=== PATIENT | female | born 1960 | race Caucasian/White ===

== ENCOUNTER 2017-09-20 09:45 | Inpatient (IN) | payer MEDICAID ==
[~2017-09-20] VITALS: Ht 162.6 cm; Wt 73.3 kg
[2017-09-20 10:45] LABS: APPEARANCE,URINE Turbid (CLEAR); BILIRUBIN,URINE Negative (NEGATIVE); COLOR,URINE Yellow (YELLOW); GLUCOSE, URINE (UA) Negative (NEGATIVE); KETONES,URINE 15 mg/dL (NEGATIVE); LEUKOCYTE ESTERASE ,URINE Small (NEGATIVE); NITRATE,URINE Negative (NEGATIVE); OCCULT BLOOD,URINE Negative (NEGATIVE); PROTEIN,URINE Negative (NEGATIVE); UROBILINOGEN,URINE 0.2 mg/dL (0.2-1.0)
[2017-09-20 10:51] LABS: RED CELL DISTRIBUTION WIDTH 12.7 % (11.0-15.5)
[2017-09-20 10:52] LABS: AMPHET/METH SCREEN,URINE NEGATIVE (NEGATIVE); BARBITURATE SCREEN, URINE NEGATIVE (NEGATIVE); BENZODIAZEPINES SCREEN,URINE NEGATIVE (NEGATIVE); CANNABINOID SCREEN,URINE NEGATIVE (NEGATIVE); COCAINE SCREEN,URINE NEGATIVE (NEGATIVE); OPIATE SCREEN,URINE NEGATIVE (NEGATIVE); PHENCYCLIDINE SCREEN,URINE NEGATIVE (NEGATIVE)
[2017-09-20 10:55] LABS: ACETAMINOPHEN < 1 mcg/mL (10-30); CARBON DIOXIDE 24 mmol/L (21-32); CREATININE 0.5 mg/dL (0.5-1.5); GLOMERULAR FILTR. RATE CALC 136 mL/min (>60); GLUCOSE,RANDOM 109 mg/dL (70-105); POTASSIUM 3.7 mmol/L (3.5-5.1); SALICYLATE < 2.8 mg/dL (2.8-20.0); SODIUM SERUM 113 mmol/L (136-145); UREA NITROGEN, BLOOD 9 mg/dL (7-18)
[2017-09-20 10:56] LABS: CHLORIDE 79 mmol/L (101-111)
[2017-09-20 11:11] LABS: BASOPHILS % (AUTO) 0.6 % (0.0-5.0); EOSINOPHILS % (AUTO) 1.5 % (0.0-8.0); LYMPHOCYTES % (AUTO) 24.4 % (21.0-51.0); MEAN CORPUSCULAR HGB CONC 36.9 g/dL (32.0-36.0); MEAN CORPUSCULAR VOLUME 86.6 fL (79-99); NEUTROPHILS % (AUTO) 63.5 % (40.0-77.0); PLATELET COUNT (AUTO) 292 K/uL (130-400); RED BLOOD CELL COUNT(AUTO) 3.69 MIL/uL (4.00-5.50); WHITE BLOOD COUNT (AUTO) 7.7 K/uL (4.8-10.8)
[2017-09-20 11:20] LABS: BACTERIA,URINE Few /HPF (None Seen); MUCUS,URINE Few LPF (None Seen); RBC,URINE None Seen /HPF (0-1); SQUAMOUS EPITHELIAL CELL,UR Moderate /LPF (0-2)
[2017-09-20 12:04] LABS: CHLORIDE,URINE RANDOM 40 mmol/L (110-250); POTASSIUM,URINE RANDOM 17 mmol/L (25-125); SODIUM,URINE RANDOM 28 mmol/l (40-220)
[2017-09-20] MEDS ORDERED: SODIUM CHLORIDE 0.9% 1000ML 1,000 ML IV ONE (12:05)
[2017-09-20] MEDS ORDERED: HALOPERIDOL LACTATE 5 MG/ML VIAL ONE (15:13)
[2017-09-20] MEDS: SODIUM CHLORIDE 0.9% 1000ML 1,000 ML IV SCH ×2 (15:15→23:40)
[2017-09-20] MEDS ORDERED: ONDANSETRON HCL 4 MG/2 ML VIAL IVP PRN (15:15)
[2017-09-20 16:20] VITALS: BP 92/52
[2017-09-20] MEDS ORDERED: TRI115C TP (18:08)
[2017-09-20] MEDS ORDERED: PRAV80TA21 PO (18:08)
[2017-09-20] MEDS ORDERED: AEC81 PO (18:08)
[2017-09-20] MEDS ORDERED: MONT10TA24 PO (18:08)
[2017-09-20] MEDS ORDERED: ELET40TA10 PO (18:08)
[2017-09-20] MEDS ORDERED: DIPH25TA22 PO (18:08)
[2017-09-20] MEDS ORDERED: NITR0.4T SL (18:08)
[2017-09-20] MEDS ORDERED: METH-350 PO (18:08)
[2017-09-20] MEDS ORDERED: ESOM40CA PO (18:08)
[2017-09-20] MEDS ORDERED: CYAN500T46 PO (18:08)
[2017-09-20] MEDS ORDERED: PRAM0.5T3 PO (18:08)
[2017-09-20] MEDS ORDERED: ACYC200C PO (18:08)
[2017-09-20] MEDS ORDERED: ZOLP5TAB8 PO (18:08)
[2017-09-20] MEDS ORDERED: OXCA300T46 PO (18:08)
[2017-09-20] MEDS ORDERED: CHOL200013 PO (18:08)
[2017-09-20] MEDS ORDERED: BENZ2TAB10 PO (18:08)
[2017-09-20] MEDS ORDERED: OLAN15TA2 PO (18:08)
[2017-09-20] MEDS ORDERED: CALC400I NASAL (18:08)
[2017-09-20] MEDS ORDERED: MECL-111 PO (18:08)
[2017-09-20] MEDS ORDERED: IPRA3AMP4 IH (18:08)
[2017-09-20] MEDS ORDERED: PROP20TA7 PO (18:08)
[2017-09-20] MEDS ORDERED: TRAM50TA4 PO (18:08)
[2017-09-20] MEDS ORDERED: ALBU0.63 IH (18:08)
[2017-09-20] MEDS ORDERED: BENZ-51 PO (18:10)
[2017-09-20 19:20] LABS: CREATININE 0.6 mg/dL (0.5-1.5); POTASSIUM 3.4 mmol/L (3.5-5.1)
[2017-09-20 20:21] VITALS: BP 100/50
[2017-09-20 23:10] VITALS: BP 121/74
[2017-09-20 23:30] VITALS: BP 102/62
[2017-09-20] MEDS: ACETAMINOPHEN 325 MG TAB PO PRN (23:34)
[2017-09-20] MEDS: HALOPERIDOL LACTATE 5 MG/ML VIAL IM PRN (23:50)
[2017-09-21 04:10] VITALS: BP 108/55
[2017-09-21 06:14] LABS: HEMATOCRIT 33.4 % (36-48); MEAN CORPUSCULAR VOLUME 88.8 fL (79-99); PLATELET COUNT (AUTO) 307 K/uL (130-400); RED BLOOD CELL COUNT(AUTO) 3.76 MIL/uL (4.00-5.50); RED CELL DISTRIBUTION WIDTH 12.9 % (11.0-15.5); WHITE BLOOD COUNT (AUTO) 4.1 K/uL (4.8-10.8)
[2017-09-21 06:22] LABS: CREATININE 0.5 mg/dL (0.5-1.5); POTASSIUM 3.4 mmol/L (3.5-5.1)
[2017-09-21 07:34] LABS: EOSINOPHILS % (MANUAL) 2 % (1-6); LYMPHOCYTES % (MANUAL) 36 % (22-44); MONOCYTES % (MANUAL) 9 % (2-9); SEGMENTED NEUTROPHILS % 53 % (40-70)
[2017-09-21 07:35] LABS: PLATELET MORPHOLOGY COMMENT ADEQUATE
[2017-09-21 07:36] LABS: MAN.DIFF COMMENT-IMPRESSION MANUAL DIFFERENTIAL
[2017-09-21 08:12] VITALS: BP 101/75
[2017-09-21] MEDS ORDERED: MECLIZINE HCL 25 MG TABLET PO SCH (08:30)
[2017-09-21] MEDS ORDERED: BENZONATATE 100 MG CAPSULE PO PRN (08:30)
[2017-09-21] MEDS ORDERED: MONTELUKAST SODIUM 10 MG TAB PO PRN (08:30)
[2017-09-21] MEDS ORDERED: OLANZAPINE 15 MG PO SCH (08:30)
[2017-09-21] MEDS ORDERED: OXCA300O4 PO (08:34)
[2017-09-21] MEDS ORDERED: ACET-66 PO (08:34)
[2017-09-21] MEDS ORDERED: TEMA7.5C19 PO (08:34)
[2017-09-21] MEDS ORDERED: IBUP-2070 PO (08:34)
[2017-09-21] MEDS ORDERED: TRAZ-147 PO (08:34)
[2017-09-21] MEDS ORDERED: PROP10TA10 PO (08:34)
[2017-09-21] MEDS ORDERED: ACETAMINOPHEN EXTRA STRENGTH 500 MG TABLET PO SCH (08:45)
[2017-09-21] MEDS ORDERED: OXCARBAZEPINE 300 MG TAB PO SCH (08:45)
[2017-09-21] MEDS: PANTOPRAZOLE SODIUM 40 MG TABLET.DR PO SCH (08:52)
[2017-09-21] MEDS ORDERED: PANTOPRAZOLE SODIUM 40 MG TABLET.DR PO SCH (09:00)
[2017-09-21] MEDS: ASPIRIN 81 MG EC TAB PO SCH (09:04)
[2017-09-21] MEDS: CYANOCOBALAMIN (VITAMIN B-12) 1,000 MCG TABLET PO SCH (09:04)
[2017-09-21] MEDS: PROPRANOLOL HCL 10 MG TAB PO SCH ×2 (09:04→20:05)
[2017-09-21] MEDS: BENZTROPINE MESYLATE 0.5 MG TAB PO SCH ×2 (09:24→20:05)
[2017-09-21] MEDS ORDERED: HYDROCORTISONE/PRAMOXINE 10 GM FOAM RC PRN (11:30)
[2017-09-21] MEDS ORDERED: POTASSIUM CHLORIDE 10 MEQ/TAB.SA PO SCH (11:30)
[2017-09-21 11:54] VITALS: BP 105/76
[2017-09-21] MEDS: ACETAMINOPHEN 325 MG TAB PO PRN (13:36)
[2017-09-21 16:00] VITALS: BP 127/80
[2017-09-21 19:00] VITALS: BP 111/78
[2017-09-21] MEDS: ATORVASTATIN CALCIUM 20 MG TABLET PO SCH (20:05)
[2017-09-21] MEDS: TEMAZEPAM 7.5 MG CAPSULE PO SCH (20:05)
[2017-09-21] MEDS: TRAZODONE HCL 100 MG TABLET PO SCH (20:05)
[2017-09-21 23:00] VITALS: BP 106/62
[2017-09-22] VITALS (7 sets, daily range): BP systolic 98–130; BP diastolic 50–83
[2017-09-22] MEDS: ACETAMINOPHEN 325 MG TAB PO PRN ×2 (03:50→12:51)
[2017-09-22] MEDS: SODIUM CHLORIDE 0.9% 1000ML 1,000 ML IV SCH (03:53)
[2017-09-22 07:06] LABS: CREATININE 0.5 mg/dL (0.5-1.5); POTASSIUM 3.7 mmol/L (3.5-5.1)
[2017-09-22] MEDS: ASPIRIN 81 MG EC TAB PO SCH (09:40)
[2017-09-22] MEDS: CYANOCOBALAMIN (VITAMIN B-12) 1,000 MCG TABLET PO SCH (09:40)
[2017-09-22] MEDS: PROPRANOLOL HCL 10 MG TAB PO SCH ×2 (09:40→22:45)
[2017-09-22] MEDS: BENZTROPINE MESYLATE 0.5 MG TAB PO SCH ×2 (09:40→22:51)
[2017-09-22] MEDS: PANTOPRAZOLE SODIUM 40 MG TABLET.DR PO SCH (09:41)
[2017-09-22] MEDS ORDERED: OLANZAPINE 5 MG TAB ONE (17:23)
[2017-09-22] MEDS: OXCARBAZEPINE 300 MG TAB PO SCH ×2 (17:26→22:53)
[2017-09-22] MEDS: HALOPERIDOL LACTATE 5 MG/ML VIAL IM PRN (17:39)
[2017-09-22] MEDS ORDERED: OLANZAPINE 5 MG TAB PO SCH (18:00)
[2017-09-22] MEDS: ATORVASTATIN CALCIUM 20 MG TABLET PO SCH ×2 (21:00→22:49)
[2017-09-22] MEDS: OLANZAPINE 5 MG TAB PO SCH (21:00)
[2017-09-22] MEDS: TEMAZEPAM 7.5 MG CAPSULE PO SCH (21:00)
[2017-09-22] MEDS ORDERED: MECLIZINE HCL 25 MG TABLET PO PRN (21:00)
[2017-09-22] MEDS: TRAZODONE HCL 100 MG TABLET PO SCH (21:00)
[2017-09-23] MEDS: HALOPERIDOL LACTATE 5 MG/ML VIAL IM PRN (03:51)
[2017-09-23] MEDS: ACETAMINOPHEN 325 MG TAB PO PRN ×2 (03:52→09:35)
[2017-09-23 04:00] VITALS: BP 129/81
[2017-09-23 06:18] LABS: HEMATOCRIT 30.6 % (36-48); MEAN CORPUSCULAR HEMOGLOBIN 31.3 pg (27.0-33.0); MEAN CORPUSCULAR HGB CONC 34.9 g/dL (32.0-36.0); MEAN CORPUSCULAR VOLUME 89.6 fL (79-99); PLATELET COUNT (AUTO) 302 K/uL (130-400); RED BLOOD CELL COUNT(AUTO) 3.42 MIL/uL (4.00-5.50); RED CELL DISTRIBUTION WIDTH 13.2 % (11.0-15.5); WHITE BLOOD COUNT (AUTO) 7.4 K/uL (4.8-10.8)
[2017-09-23 07:00] VITALS: BP 134/83
[2017-09-23 08:03] LABS: ALBUMIN 4.1 g/dL (3.5-5.0); BILIRUBIN,TOTAL 0.4 mg/dL (0.2-1.0); CREATININE 0.4 mg/dL (0.5-1.5); POTASSIUM 3.8 mmol/L (3.5-5.1)
[2017-09-23] MEDS: CYANOCOBALAMIN (VITAMIN B-12) 1,000 MCG TABLET PO SCH (09:35)
[2017-09-23] MEDS: PANTOPRAZOLE SODIUM 40 MG TABLET.DR PO SCH (09:36)
[2017-09-23] MEDS: OXCARBAZEPINE 300 MG TAB PO SCH ×4 (09:36→21:01)
[2017-09-23] MEDS: ASPIRIN 81 MG EC TAB PO SCH (09:36)
[2017-09-23] MEDS: BENZTROPINE MESYLATE 0.5 MG TAB PO SCH ×2 (09:36→20:53)
[2017-09-23] MEDS: PROPRANOLOL HCL 10 MG TAB PO SCH ×2 (09:36→21:00)
[2017-09-23 10:37] VITALS: BP 99/72
[2017-09-23] MEDS: SODIUM CHLORIDE 0.9% 1000ML 1,000 ML IV SCH ×3 (12:15→23:26)
[2017-09-23] MEDS ORDERED: OLANZAPINE ODT 5 MG TAB SL SCH (13:15)
[2017-09-23] MEDS ORDERED: OLANZAPINE ODT 5 MG TAB SL PRN (13:15)
[2017-09-23 15:14] VITALS: BP 129/82
[2017-09-23] MEDS: ATORVASTATIN CALCIUM 20 MG TABLET PO SCH (21:00)
[2017-09-23] MEDS ORDERED: OLANZAPINE 10MG/ML 1ML VIAL IM PRN (21:00)
[2017-09-23] MEDS: OLANZAPINE 5 MG TAB PO SCH (21:00)
[2017-09-23] MEDS: TEMAZEPAM 7.5 MG CAPSULE PO SCH (21:00)
[2017-09-23] MEDS: TRAZODONE HCL 100 MG TABLET PO SCH (21:00)
[2017-09-23 22:40] VITALS: BP 126/82
[2017-09-24] MEDS: LORAZEPAM 2 MG/ML 1 ML VIAL IVP PRN (02:41)
[2017-09-24 04:52] LABS: CREATININE 0.4 mg/dL (0.5-1.5); POTASSIUM 3.1 mmol/L (3.5-5.1)
[2017-09-24] MEDS: SODIUM CHLORIDE 0.9% 1000ML 1,000 ML IV SCH ×2 (08:15→18:15)
[2017-09-24] MEDS: PANTOPRAZOLE SODIUM 40 MG TABLET.DR PO SCH (11:40)
[2017-09-24] MEDS: OXCARBAZEPINE 300 MG TAB PO SCH ×4 (11:40→21:32)
[2017-09-24] MEDS: PROPRANOLOL HCL 10 MG TAB PO SCH ×2 (11:40→21:31)
[2017-09-24] MEDS: BENZTROPINE MESYLATE 0.5 MG TAB PO SCH ×2 (11:41→21:32)
[2017-09-24] MEDS: ACETAMINOPHEN 325 MG TAB PO PRN (11:41)
[2017-09-24] MEDS: CYANOCOBALAMIN (VITAMIN B-12) 1,000 MCG TABLET PO SCH (11:41)
[2017-09-24] MEDS: ASPIRIN 81 MG EC TAB PO SCH (11:42)
[2017-09-24] MEDS ORDERED: PHARMACY COMMUNICATION MISC SCH (16:15)
[2017-09-24] MEDS ORDERED: POTASSIUM CHLORIDE 20MEQ/100ML 100 ML IV PRN (16:30)
[2017-09-24] MEDS ORDERED: POTASSIUM CHLORIDE 10% ELIXIR 20 MEQ/15 ML UDCUP PO PRN (16:30)
[2017-09-24] MEDS ORDERED: LIDOCAINE HCL-MPF 1% 2ML VIAL IVP PRN (16:30)
[2017-09-24] MEDS: SODIUM CHLORIDE 1,000 MG TAB PO SCH (18:02)
[2017-09-24] MEDS: POTASSIUM CHLORIDE 20 MEQ ERTAB PO PRN ×2 (18:04→18:13)
[2017-09-24] MEDS: TEMAZEPAM 7.5 MG CAPSULE PO SCH (21:00)
[2017-09-24] MEDS: TRAZODONE HCL 100 MG TABLET PO SCH (21:00)
[2017-09-24] MEDS: OLANZAPINE 5 MG TAB PO SCH (21:00)
[2017-09-24] MEDS: ATORVASTATIN CALCIUM 20 MG TABLET PO SCH (21:31)
[2017-09-25 03:31] LABS: CREATININE 0.5 mg/dL (0.5-1.5); POTASSIUM 4.8 mmol/L (3.5-5.1)
[2017-09-25 04:00] VITALS: BP 128/98
[2017-09-25] MEDS: SODIUM CHLORIDE 0.9% 1000ML 1,000 ML IV SCH ×2 (04:15→14:15)
[2017-09-25 08:00] VITALS: BP 127/90
[2017-09-25] MEDS: CYANOCOBALAMIN (VITAMIN B-12) 1,000 MCG TABLET PO SCH (08:59)
[2017-09-25] MEDS: PANTOPRAZOLE SODIUM 40 MG TABLET.DR PO SCH (08:59)
[2017-09-25] MEDS: PROPRANOLOL HCL 10 MG TAB PO SCH ×2 (08:59→19:54)
[2017-09-25] MEDS: OXCARBAZEPINE 300 MG TAB PO SCH ×4 (08:59→19:57)
[2017-09-25] MEDS: ASPIRIN 81 MG EC TAB PO SCH (08:59)
[2017-09-25] MEDS: BENZTROPINE MESYLATE 0.5 MG TAB PO SCH ×2 (08:59→19:54)
[2017-09-25] MEDS: SODIUM CHLORIDE 1,000 MG TAB PO SCH (09:00)
[2017-09-25 11:00] VITALS: BP 99/68
[2017-09-25 15:51] VITALS: BP 97/65
[2017-09-25 19:15] VITALS: BP 103/66
[2017-09-25] MEDS: TEMAZEPAM 30 MG CAP PO SCH (19:54)
[2017-09-25] MEDS: TRAZODONE HCL 100 MG TABLET PO SCH (19:54)
[2017-09-25] MEDS: OLANZAPINE 5 MG TAB PO SCH (19:54)
[2017-09-25] MEDS: ATORVASTATIN CALCIUM 20 MG TABLET PO SCH (19:54)
[2017-09-25 23:06] VITALS: BP 110/62
[2017-09-26] MEDS: SODIUM CHLORIDE 0.9% 1000ML 1,000 ML IV SCH (00:15)
[2017-09-26 03:20] VITALS: BP 106/64
[2017-09-26 05:58] LABS: CREATININE 0.5 mg/dL (0.5-1.5); POTASSIUM 4.1 mmol/L (3.5-5.1)
[2017-09-26 07:00] VITALS: BP 112/73
[2017-09-26] MEDS: SODIUM CHLORIDE 1,000 MG TAB PO SCH ×2 (09:06→22:51)
[2017-09-26] MEDS: PROPRANOLOL HCL 10 MG TAB PO SCH ×2 (09:06→23:06)
[2017-09-26] MEDS: CYANOCOBALAMIN (VITAMIN B-12) 1,000 MCG TABLET PO SCH (09:06)
[2017-09-26] MEDS: OXCARBAZEPINE 300 MG TAB PO SCH ×4 (09:06→22:50)
[2017-09-26] MEDS: ASPIRIN 81 MG EC TAB PO SCH (09:07)
[2017-09-26] MEDS: PANTOPRAZOLE SODIUM 40 MG TABLET.DR PO SCH (09:07)
[2017-09-26] MEDS: BENZTROPINE MESYLATE 0.5 MG TAB PO SCH ×2 (09:12→22:51)
[2017-09-26 11:00] VITALS: BP 120/85
[2017-09-26 15:31] VITALS: BP 117/77
[2017-09-26 18:57] VITALS: BP 104/61
[2017-09-26] MEDS: TEMAZEPAM 30 MG CAP PO SCH (23:02)
[2017-09-26] MEDS: TRAZODONE HCL 100 MG TABLET PO SCH (23:03)
[2017-09-26] MEDS: ATORVASTATIN CALCIUM 20 MG TABLET PO SCH (23:06)
[2017-09-26] MEDS: OLANZAPINE 5 MG TAB PO SCH (23:08)
[2017-09-26 23:21] VITALS: BP 117/77
[2017-09-27 03:15] VITALS: BP 109/58
[2017-09-27 03:54] LABS: HEMATOCRIT 28.4 % (36-48); MEAN CORPUSCULAR HGB CONC 36.2 g/dL (32.0-36.0); MEAN CORPUSCULAR VOLUME 88.2 fL (79-99); NUCLEATED RED BLOOD CELLS 0.1 % (0.0-0.19); PLATELET COUNT (AUTO) 244 K/uL (130-400); RED BLOOD CELL COUNT(AUTO) 3.22 MIL/uL (4.00-5.50); RED CELL DISTRIBUTION WIDTH 12.4 % (11.0-15.5); WHITE BLOOD COUNT (AUTO) 4.8 K/uL (4.8-10.8)
[2017-09-27 04:17] LABS: CREATININE 0.5 mg/dL (0.5-1.5); MAGNESIUM 1.2 mg/dL (1.80-2.40); POTASSIUM 3.3 mmol/L (3.5-5.1); URIC ACID 2.1 mg/dL (2.6-7.2)
[2017-09-27 07:54] VITALS: BP 123/77
[2017-09-27] MEDS: ASPIRIN 81 MG EC TAB PO SCH (09:36)
[2017-09-27] MEDS: PANTOPRAZOLE SODIUM 40 MG TABLET.DR PO SCH (09:36)
[2017-09-27] MEDS: BENZTROPINE MESYLATE 0.5 MG TAB PO SCH ×2 (09:36→21:34)
[2017-09-27] MEDS: PROPRANOLOL HCL 10 MG TAB PO SCH ×2 (09:36→21:35)
[2017-09-27] MEDS: SODIUM CHLORIDE 1,000 MG TAB PO SCH ×3 (09:36→21:35)
[2017-09-27] MEDS: OXCARBAZEPINE 300 MG TAB PO SCH ×4 (09:36→21:35)
[2017-09-27 11:00] VITALS: BP 131/59
[2017-09-27] MEDS: CYANOCOBALAMIN (VITAMIN B-12) 1,000 MCG TABLET PO SCH (14:06)
[2017-09-27 16:00] VITALS: BP 141/96
[2017-09-27] MEDS ORDERED: MAGNESIUM 2GM PREMIX 50ML 50 ML IV PRN (17:45)
[2017-09-27] MEDS: IBUPROFEN 600 MG TABLET PO PRN (18:09)
[2017-09-27 19:16] VITALS: BP 145/71
[2017-09-27] MEDS: TRAZODONE HCL 100 MG TABLET PO SCH (21:35)
[2017-09-27] MEDS: OLANZAPINE 5 MG TAB PO SCH (21:35)
[2017-09-27] MEDS: ATORVASTATIN CALCIUM 20 MG TABLET PO SCH (21:35)
[2017-09-27] MEDS: TEMAZEPAM 30 MG CAP PO SCH (21:35)
[2017-09-27 22:58] VITALS: BP 138/67
[2017-09-28 04:17] VITALS: BP 104/51
[2017-09-28 06:34] LABS: HEMATOCRIT 31.1 % (36-48); MEAN CORPUSCULAR HEMOGLOBIN 32.7 pg (27.0-33.0); MEAN CORPUSCULAR HGB CONC 36.7 g/dL (32.0-36.0); PLATELET COUNT (AUTO) 326 K/uL (130-400); RED BLOOD CELL COUNT(AUTO) 3.49 MIL/uL (4.00-5.50); RED CELL DISTRIBUTION WIDTH 12.8 % (11.0-15.5); WHITE BLOOD COUNT (AUTO) 4.4 K/uL (4.8-10.8)
[2017-09-28 06:41] LABS: CREATININE 0.5 mg/dL (0.5-1.5); POTASSIUM 4.1 mmol/L (3.5-5.1)
[2017-09-28 07:05] VITALS: BP 101/66
[2017-09-28 07:53] LABS: BASOPHILS % (MANUAL) 1 % (0-2); EOSINOPHILS % (MANUAL) 6 % (1-6); LYMPHOCYTES % (MANUAL) 25 % (22-44); MAN.DIFF COMMENT-IMPRESSION MANUAL DIFFERENTIAL; MONOCYTES % (MANUAL) 10 % (2-9); PLATELET MORPHOLOGY COMMENT ADEQUATE; REACTIVE LYMPHOCYTES 1 % (0-0); SEGMENTED NEUTROPHILS % 57 % (40-70)
[2017-09-28] MEDS: PROPRANOLOL HCL 10 MG TAB PO SCH ×2 (10:51→21:18)
[2017-09-28] MEDS: OXCARBAZEPINE 300 MG TAB PO SCH ×3 (10:51→21:18)
[2017-09-28] MEDS: SODIUM CHLORIDE 1,000 MG TAB PO SCH ×3 (10:51→21:18)
[2017-09-28] MEDS: PANTOPRAZOLE SODIUM 40 MG TABLET.DR PO SCH (10:51)
[2017-09-28] MEDS: BENZTROPINE MESYLATE 0.5 MG TAB PO SCH ×2 (10:51→21:18)
[2017-09-28] MEDS: ASPIRIN 81 MG EC TAB PO SCH (10:51)
[2017-09-28] MEDS: CYANOCOBALAMIN (VITAMIN B-12) 1,000 MCG TABLET PO SCH (10:52)
[2017-09-28] MEDS: IBUPROFEN 600 MG TABLET PO PRN (11:00)
[2017-09-28 11:26] VITALS: BP 108/74
[2017-09-28 16:28] VITALS: BP 110/64
[2017-09-28 20:37] VITALS: BP 132/86
[2017-09-28] MEDS: OLANZAPINE 5 MG TAB PO SCH (21:18)
[2017-09-28] MEDS: TEMAZEPAM 30 MG CAP PO SCH (21:18)
[2017-09-28] MEDS: ATORVASTATIN CALCIUM 20 MG TABLET PO SCH (21:18)
[2017-09-28] MEDS: TRAZODONE HCL 100 MG TABLET PO SCH (21:18)
[2017-09-29 00:17] VITALS: BP 96/56
[2017-09-29] MEDS: LORAZEPAM 2 MG/ML 1 ML VIAL IVP PRN (02:25)
[2017-09-29 04:45] VITALS: BP 135/83
[2017-09-29 07:32] VITALS: BP 138/90
[2017-09-29] MEDS: BENZTROPINE MESYLATE 0.5 MG TAB PO SCH (09:03)
[2017-09-29] MEDS: ASPIRIN 81 MG EC TAB PO SCH (09:03)
[2017-09-29] MEDS: PANTOPRAZOLE SODIUM 40 MG TABLET.DR PO SCH (09:04)
[2017-09-29] MEDS: OXCARBAZEPINE 300 MG TAB PO SCH ×3 (09:04→17:00)
[2017-09-29] MEDS: CYANOCOBALAMIN (VITAMIN B-12) 1,000 MCG TABLET PO SCH (09:04)
[2017-09-29] MEDS: PROPRANOLOL HCL 10 MG TAB PO SCH (09:04)
[2017-09-29] MEDS: SODIUM CHLORIDE 1,000 MG TAB PO SCH ×2 (09:04→13:24)
[2017-09-29] MEDS: IBUPROFEN 600 MG TABLET PO PRN (09:08)
[2017-09-29 09:34] LABS: BASOPHILS % (AUTO) 0.5 % (0.0-5.0); EOSINOPHILS % (AUTO) 2.4 % (0.0-8.0); HEMATOCRIT 29.8 % (36-48); LYMPHOCYTES % (AUTO) 22.2 % (21.0-51.0); MEAN CORPUSCULAR HEMOGLOBIN 32.3 pg (27.0-33.0); MEAN CORPUSCULAR VOLUME 89.7 fL (79-99); MONOCYTES % (AUTO) 10.3 % (3.0-13.0); NEUTROPHILS % (AUTO) 64.6 % (40.0-77.0); PLATELET COUNT (AUTO) 319 K/uL (130-400); RED BLOOD CELL COUNT(AUTO) 3.32 MIL/uL (4.00-5.50); RED CELL DISTRIBUTION WIDTH 12.6 % (11.0-15.5); WHITE BLOOD COUNT (AUTO) 5.8 K/uL (4.8-10.8)
[2017-09-29 09:46] LABS: CREATININE 0.5 mg/dL (0.5-1.5); MAGNESIUM 1.8 mg/dL (1.80-2.40); POTASSIUM 4.7 mmol/L (3.5-5.1)
[2017-09-29 10:29] VITALS: BP 118/78
[2017-09-29 15:38] VITALS: BP 132/65
== END 2017-09-29 19:11 | DRG 426 ==
LOC: EDH 09:45 → EDHIP 09:46 → 3AH 16:21
PROVIDERS: ADMIT Family Medicine; ATTEND Family Medicine
DX: E87.1 Hypo-osmolality and hyponatremia (principal); F22 Delusional disorders; F25.0 Schizoaffective disorder, bipolar type; E78.5 Hyperlipidemia, unspecified; F31.9 Bipolar disorder, unspecified; J44.9 Chronic obstructive pulmonary disease, unspecified; I10 Essential (primary) hypertension; F43.10 Post-traumatic stress disorder, unspecified; F63.81 Intermittent explosive disorder; Z88.6 Allergy status to analgesic agent; Z88.0 Allergy status to penicillin; Z88.2 Allergy status to sulfonamides; Z88.8 Allergy status to other drugs, medicaments and biological substances; Z90.710 Acquired absence of both cervix and uterus; Z90.49 Acquired absence of other specified parts of digestive tract
CPT/HCPCS: 36415; 80048; 80051; 80053; 80305; 81001; 83735; 83930; 83935; 84300; 84443; 84550; 85025; 85027; G0480; G0481; J1630; J2060; J2405; J3475; J3490; J7030

== ENCOUNTER 2017-11-01 12:32 | Emergency (ER) | payer MEDICAID ==
[~2017-11-01 12:32] MED LIST: AEC81 PO; BENZ-51 PO; BENZ2TAB10 PO; CALC400I NASAL; CHOL200013 PO; CYAN500T46 PO; ELET40TA10 PO; ESOM40CA PO; MECL-111 PO; MONT10TA24 PO; NITR0.4T SL; OLAN15TA2 PO; OXCA300T46 PO; PRAM0.5T3 PO; PRAV80TA21 PO; PROP10TA10 PO; TEMA7.5C19 PO; TRAM50TA4 PO; TRAZ-147 PO; TRI115C TP
== END 2017-11-01 13:59 | disposition home or self-care (01) ==
LOC: EDH 12:32
DX: S40.011A Contusion of right shoulder, initial encounter (principal); M54.5 Low back pain; I10 Essential (primary) hypertension; E78.5 Hyperlipidemia, unspecified; F20.9 Schizophrenia, unspecified; J44.9 Chronic obstructive pulmonary disease, unspecified; Z88.1 Allergy status to other antibiotic agents; Z88.0 Allergy status to penicillin; Z88.6 Allergy status to analgesic agent; Z87.891 Personal history of nicotine dependence; W18.39XA Other fall on same level, initial encounter; Y93.01 Activity, walking, marching and hiking; Y92.89 Other specified places as the place of occurrence of the external cause; Y99.8 Other external cause status
CPT/HCPCS: 72100; 73030

== ENCOUNTER 2017-11-23 07:43 | Emergency (ER) | payer MEDICAID ==
[2017-11-23 10:34] LABS: BASOPHILS % (AUTO) 0.6 % (0.0-5.0); EOSINOPHILS % (AUTO) 0.9 % (0.0-8.0); HEMATOCRIT 37.2 % (36-48); LYMPHOCYTES % (AUTO) 22.3 % (21.0-51.0); MEAN CORPUSCULAR HEMOGLOBIN 31.6 pg (27.0-33.0); MEAN CORPUSCULAR HGB CONC 34.9 g/dL (32.0-36.0); MEAN CORPUSCULAR VOLUME 90.6 fL (79-99); MONOCYTES % (AUTO) 7.2 % (3.0-13.0); PLATELET COUNT (AUTO) 389 K/uL (130-400); RED CELL DISTRIBUTION WIDTH 13.6 % (11.0-15.5); WHITE BLOOD COUNT (AUTO) 8.8 K/uL (4.8-10.8)
[2017-11-23 10:34] LABS: APPEARANCE,URINE Clear (CLEAR); BILIRUBIN,URINE Negative (NEGATIVE); COLOR,URINE Yellow (YELLOW); GLUCOSE, URINE (UA) Negative (NEGATIVE); KETONES,URINE >=80 mg/dL (NEGATIVE); LEUKOCYTE ESTERASE ,URINE Large (NEGATIVE); NITRATE,URINE Negative (NEGATIVE); OCCULT BLOOD,URINE Negative (NEGATIVE); PH,URINE 6.5 (5.0-8.0); PROTEIN,URINE Negative (NEGATIVE); UROBILINOGEN,URINE 0.2 mg/dL (0.2-1.0)
[2017-11-23 10:38] LABS: BACTERIA,URINE Rare /HPF (None Seen); RBC,URINE 0-1 /HPF (0-1); SQUAMOUS EPITHELIAL CELL,UR Rare /LPF (0-2); WBC,URINE 0-1 /HPF (0-1)
[2017-11-23 10:44] LABS: CARBON DIOXIDE 26 mmol/L (21-32); CHLORIDE 106 mmol/L (101-111); CREATININE 0.5 mg/dL (0.5-1.5); GLOMERULAR FILTR. RATE CALC 136 mL/min (>60); GLUCOSE,RANDOM 127 mg/dL (70-105); POTASSIUM 3.6 mmol/L (3.5-5.1); SODIUM SERUM 143 mmol/L (136-145); UREA NITROGEN, BLOOD 9 mg/dL (7-18)
[2017-11-23 10:48] LABS: ACETAMINOPHEN < 1 mcg/mL (10-30); SALICYLATE < 2.8 mg/dL (2.8-20.0)
[2017-11-23 10:49] LABS: AMPHET/METH SCREEN,URINE NEGATIVE (NEGATIVE); BARBITURATE SCREEN, URINE NEGATIVE (NEGATIVE); BENZODIAZEPINES SCREEN,URINE NEGATIVE (NEGATIVE); CANNABINOID SCREEN,URINE NEGATIVE (NEGATIVE); COCAINE SCREEN,URINE NEGATIVE (NEGATIVE); OPIATE SCREEN,URINE NEGATIVE (NEGATIVE); PHENCYCLIDINE SCREEN,URINE NEGATIVE (NEGATIVE)
[2017-11-23] MEDS ORDERED: HALOPERIDOL 5 MG TABLET PO SCH (16:02)
[2017-11-23] MEDS ORDERED: LORAZEPAM 2 MG/ML 1 ML VIAL ONE (16:42)
[2017-11-23] MEDS ORDERED: DIPHENHYDRAMINE HCL 25 MG CAPSULE ONE (16:42)
== END 2017-11-23 18:11 | disposition short-term general hospital (02) ==
LOC: EDH 07:43
DX: R44.2 Other hallucinations (principal); J44.9 Chronic obstructive pulmonary disease, unspecified; E78.5 Hyperlipidemia, unspecified; I10 Essential (primary) hypertension; E87.1 Hypo-osmolality and hyponatremia; F31.9 Bipolar disorder, unspecified; Z88.6 Allergy status to analgesic agent; Z88.1 Allergy status to other antibiotic agents; Z88.0 Allergy status to penicillin
CPT/HCPCS: 36415; 80048; 80305; 81001; 85025; 96372; 99285; G0480; G0481; J2060; Q0163

== ENCOUNTER 2017-12-29 14:46 | Emergency (ER) | payer MEDICAID ==
[~2017-12-29 14:46] MED LIST changes: -TRAZ-147 PO; +TRAZ-187 PO
[2017-12-29 15:23] LABS: POTASSIUM 4.7 mmol/L (3.5-5.1)
[2017-12-29 15:30] LABS: ALBUMIN 2.6 g/dL (3.5-5.0); BILIRUBIN,TOTAL 0.3 mg/dL (0.2-1.0); TOTAL PROTEIN, SERUM 6.6 g/dL (6.0-8.3)
[2017-12-29 15:47] LABS: CREATININE 0.5 mg/dL (0.5-1.5)
== END 2017-12-29 16:10 | disposition home or self-care (01) ==
LOC: DTH 14:46
DX: F31.9 Bipolar disorder, unspecified (principal); I10 Essential (primary) hypertension; J44.9 Chronic obstructive pulmonary disease, unspecified; E78.5 Hyperlipidemia, unspecified; E87.1 Hypo-osmolality and hyponatremia; Z88.0 Allergy status to penicillin; Z88.1 Allergy status to other antibiotic agents; Z88.6 Allergy status to analgesic agent
CPT/HCPCS: 36415; 80053

== ENCOUNTER 2018-01-04 01:43 | Emergency (ER) | payer MEDICAID ==
[2018-01-04 02:38] LABS: CARBON DIOXIDE 22 mmol/L (21-32); CHLORIDE 101 mmol/L (101-111); CREATININE 0.5 mg/dL (0.5-1.5); GLOMERULAR FILTR. RATE CALC 136 mL/min (>60); GLUCOSE,RANDOM 99 mg/dL (70-105); POTASSIUM 5.1 mmol/L (3.5-5.1); SODIUM SERUM 134 mmol/L (136-145); UREA NITROGEN, BLOOD 10 mg/dL (7-18)
[2018-01-04 02:42] LABS: ALANINE AMINOTRANSFERASE 47 U/L (12-78); ALBUMIN 3.3 g/dL (3.5-5.0); ALCOHOL, BLOOD < 3 mg/dL (0-10); ASPARTATE AMINOTRANSFERASE 39 U/L (10-37); BILIRUBIN,TOTAL 0.4 mg/dL (0.2-1.0); TOTAL PROTEIN, SERUM 7.2 g/dL (6.0-8.3)
[2018-01-04 02:44] LABS: ACETAMINOPHEN < 1 mcg/mL (10-30); SALICYLATE < 2.8 mg/dL (2.8-20.0)
[2018-01-04 02:48] LABS: AMPHET/METH SCREEN,URINE NEGATIVE (NEGATIVE); BARBITURATE SCREEN, URINE NEGATIVE (NEGATIVE); BENZODIAZEPINES SCREEN,URINE NEGATIVE (NEGATIVE); CANNABINOID SCREEN,URINE NEGATIVE (NEGATIVE); COCAINE SCREEN,URINE NEGATIVE (NEGATIVE); OPIATE SCREEN,URINE NEGATIVE (NEGATIVE); PHENCYCLIDINE SCREEN,URINE NEGATIVE (NEGATIVE)
[2018-01-04 03:23] LABS: BASOPHILS % (AUTO) 1.1 % (0.0-5.0); EOSINOPHILS % (AUTO) 6.2 % (0.0-8.0); HEMATOCRIT 32.2 % (36-48); LYMPHOCYTES % (AUTO) 26.8 % (21.0-51.0); MEAN CORPUSCULAR HGB CONC 35.1 g/dL (32.0-36.0); MEAN CORPUSCULAR VOLUME 88.4 fL (79-99); MONOCYTES % (AUTO) 9.2 % (3.0-13.0); NEUTROPHILS % (AUTO) 56.7 % (40.0-77.0); PLATELET COUNT (AUTO) 416 K/uL (130-400); RED BLOOD CELL COUNT(AUTO) 3.64 MIL/uL (4.00-5.50); RED CELL DISTRIBUTION WIDTH 14.4 % (11.0-15.5); WHITE BLOOD COUNT (AUTO) 5.7 K/uL (4.8-10.8)
== END 2018-01-04 09:58 | disposition home or self-care (01) ==
LOC: EDH 01:43
DX: F31.61 Bipolar disorder, current episode mixed, mild (principal); J44.9 Chronic obstructive pulmonary disease, unspecified; E78.5 Hyperlipidemia, unspecified; I10 Essential (primary) hypertension; F20.9 Schizophrenia, unspecified; E87.1 Hypo-osmolality and hyponatremia; Z88.0 Allergy status to penicillin; Z88.5 Allergy status to narcotic agent; Z88.1 Allergy status to other antibiotic agents
CPT/HCPCS: 36415; 80053; 80305; 85025; 94760; 99284; G0480 ×2; G0481

== ENCOUNTER 2018-01-15 16:57 | Emergency (ER) | payer MEDICAID | END 2018-01-15 17:20 | disposition home or self-care (01) | LOC: EDH 16:57 | DX: N39.0 Urinary tract infection, site not specified (principal); I10 Essential (primary) hypertension; E78.5 Hyperlipidemia, unspecified; F20.9 Schizophrenia, unspecified; Z88.6 Allergy status to analgesic agent; Z88.0 Allergy status to penicillin; Z88.1 Allergy status to other antibiotic agents; Z88.2 Allergy status to sulfonamides; Z88.8 Allergy status to other drugs, medicaments and biological substances ==

== ENCOUNTER 2018-06-20 10:03 | Emergency (ER) | payer MEDICAID | END 2018-06-20 10:40 | disposition home or self-care (01) | LOC: EDH 10:03 | DX: M75.01 Adhesive capsulitis of right shoulder (principal); J44.9 Chronic obstructive pulmonary disease, unspecified; E78.5 Hyperlipidemia, unspecified; I10 Essential (primary) hypertension; Z88.1 Allergy status to other antibiotic agents; Z88.0 Allergy status to penicillin; Z88.2 Allergy status to sulfonamides; Z88.6 Allergy status to analgesic agent; Z88.8 Allergy status to other drugs, medicaments and biological substances; Z90.49 Acquired absence of other specified parts of digestive tract; Z98.890 Other specified postprocedural states | CPT/HCPCS: 99281 ==

== ENCOUNTER 2018-08-20 09:05 | Observation (INO) | payer MEDICAID ==
[2018-08-19 12:53] VITALS: BP 120/80
[2018-08-19 12:59] LABS: APPEARANCE,URINE Clear (CLEAR); BILIRUBIN,URINE Negative (NEGATIVE); COLOR,URINE Yellow (YELLOW); GLUCOSE, URINE (UA) Negative (NEGATIVE); KETONES,URINE 40 mg/dL (NEGATIVE); LEUKOCYTE ESTERASE ,URINE Trace (NEGATIVE); NITRATE,URINE Negative (NEGATIVE); OCCULT BLOOD,URINE Negative (NEGATIVE); PH,URINE 6.5 (5.0-8.0); PROTEIN,URINE Negative (NEGATIVE); UROBILINOGEN,URINE 0.2 mg/dL (0.2-1.0)
[2018-08-19 13:03] LABS: CREATININE 0.5 mg/dL (0.5-1.5); POTASSIUM 4.3 mmol/L (3.5-5.1)
[2018-08-19 13:27] LABS: BACTERIA,URINE Rare /HPF (None Seen); RBC,URINE 0-1 /HPF (0-1); SQUAMOUS EPITHELIAL CELL,UR Rare /HPF (0-2); WBC,URINE 0-1 /HPF (0-1)
[~2018-08-20] VITALS: Ht 161.3 cm; Wt 73.3 kg
[2018-08-20] VITALS (28 sets, daily range): BP systolic 99–135; BP diastolic 60–78
[~2018-08-20 09:05] MED LIST changes: -AEC81 PO; +ALBU0.63 IH; -BENZ-51 PO; -BENZ2TAB10 PO; -CALC400I NASAL; +CALCIUM PO; -CHOL200013 PO; -ELET40TA10 PO; +EZET10 PO; +FLUT16H NASAL; +HYDR-3421 PO; +IBUP-2070 PO; -MECL-111 PO; -MONT10TA24 PO; -OLAN15TA2 PO; -OXCA300T46 PO; +OXYB5TAB10 PO; +PHARMACY COMMUNICATION MISC SCH; -PRAM0.5T3 PO; -PRAV80TA21 PO; -PROP10TA10 PO; +STIOLTO PUFF; -TEMA7.5C19 PO; -TRAM50TA4 PO; -TRAZ-187 PO; -TRI115C TP; +[UNRECOGNIZED DRUG - OTHER] NASAL
[2018-08-20] MEDS ORDERED: LACTATED RINGERS 1000ML 1,000 ML IV ONE (11:12)
[2018-08-20] MEDS: VANCOMYCIN 1GM+NS 250ML 250 ML IV SCH ×3 (11:44→19:36)
[2018-08-20] MEDS ORDERED: ROPIVACAINE 0.5% 5MG/ML 30ML IJ ONE (12:13)
[2018-08-20] MEDS ORDERED: MIDAZOLAM HCL 1 MG/ML 2ML VIAL ONE (12:20)
[2018-08-20] MEDS ORDERED: FENTANYL CITRATE PF 50 MCG/1 ML 2ML VIAL ONE (12:21)
[2018-08-20] MEDS ORDERED: SCOPOLAMINE HYDROBROMIDE 1 EACH ADH..PATCH TD ONE (12:23)
[2018-08-20] MEDS ORDERED: ONDANSETRON HCL 4 MG/2 ML VIAL ONE (13:07)
[2018-08-20] MEDS ORDERED: PROMETHAZINE HCL 25 MG/ML 1ML AMPULE IM ONE (14:41)
[2018-08-20 15:21] LABS: HEMATOCRIT 36.2 % (36-48)
[2018-08-20] MEDS ORDERED: IBUPROFEN 600 MG TABLET PO PRN (17:15)
[2018-08-20] MEDS ORDERED: ACETAMINOPHEN EXTRA STRENGTH 500 MG TABLET PO PRN (17:15)
[2018-08-20] MEDS ORDERED: NITROGLYCERIN 0.4 MG SL TAB SL SCH (19:45)
[2018-08-20] MEDS ORDERED: VANCOMYCIN PROTOCOL PER PHARMACY IV SCH (19:45)
[2018-08-20 19:46] LABS: HEMATOCRIT 36.2 % (36-48)
[2018-08-20] MEDS ORDERED: LACTATED RINGERS 1000ML 1,000 ML IV SCH (20:00)
[2018-08-20] MEDS ORDERED: BISACODYL 10 MG SUPP.RECT RC PRN (20:00)
[2018-08-20] MEDS ORDERED: MAGNESIUM HYDROXIDE 30 ML/UDCUP PO PRN (20:00)
[2018-08-20] MEDS ORDERED: ALBUTEROL SULFATE 0.083% 2.5 MG/3 ML INH IH PRN (20:15)
[2018-08-20] MEDS ORDERED: EZETIMIBE 10 MG TAB PO SCH (21:00)
[2018-08-20] MEDS: CALCIUM CARBONATE 500 MG TABLET PO SCH (22:12)
[2018-08-20] MEDS: OXYBUTYNIN CHLORIDE 5 MG TABLET PO SCH (22:12)
[2018-08-20] MEDS: HYDROXYZINE HCL 25 MG TABLET PO SCH (22:12)
[2018-08-21] MEDS ORDERED: VANCOMYCIN 1GM+NS 250ML 250 ML IV SCH
[2018-08-21 00:25] LABS: HEMATOCRIT 36.3 % (36-48)
[2018-08-21] MEDS ORDERED: HYDROMORPHONE 1 MG/1 ML AMP ONE (03:42)
[2018-08-21] MEDS ORDERED: HYDROMORPHONE HCL 0.5 MG/0.5 ML ML IVP PRN (04:00)
[2018-08-21] MEDS ORDERED: PHARMACY COMMUNICATION MISC SCH (04:30)
[2018-08-21 04:31] VITALS: BP 109/74
[2018-08-21 07:08] LABS: HEMATOCRIT 37.4 % (36-48)
[2018-08-21 08:00] VITALS: BP 130/56
[2018-08-21] MEDS: CALCIUM CARBONATE 500 MG TABLET PO SCH (08:29)
[2018-08-21] MEDS: HYDROXYZINE HCL 25 MG TABLET PO SCH ×2 (08:29→14:21)
[2018-08-21] MEDS: OXYBUTYNIN CHLORIDE 5 MG TABLET PO SCH ×2 (08:29→14:21)
[2018-08-21] MEDS: HYDROMORPHONE 1 MG/1 ML AMP IVP PRN ×2 (08:59→14:22)
[2018-08-21] MEDS ORDERED: STIOLTO RESPIMAT IH SCH (09:00)
[2018-08-21] MEDS ORDERED: PANTOPRAZOLE SODIUM 40 MG TABLET.DR PO SCH (09:00)
[2018-08-21] MEDS ORDERED: CYANOCOBALAMIN (VITAMIN B-12) 1,000 MCG TABLET PO SCH (09:00)
[2018-08-21] MEDS ORDERED: CALCITONIN 3.7 ML AEROSOL NS SCH (09:00)
[2018-08-21 11:00] VITALS: BP 92/63
[2018-08-21] MEDS ORDERED: TRAM50TA4 PO (15:54)
[2018-08-21 16:00] VITALS: BP 117/67
== END 2018-08-21 17:30 | disposition home or self-care (01) ==
LOC: DAHIP 09:05 → 4BH 16:09
DX: M75.101 Unspecified rotator cuff tear or rupture of right shoulder, not specified as traumatic (principal); I10 Essential (primary) hypertension; E78.5 Hyperlipidemia, unspecified; E11.9 Type 2 diabetes mellitus without complications; I25.10 Atherosclerotic heart disease of native coronary artery without angina pectoris; G90.2 Horner's syndrome; J30.2 Other seasonal allergic rhinitis; H57.02 Anisocoria; J44.9 Chronic obstructive pulmonary disease, unspecified; K21.9 Gastro-esophageal reflux disease without esophagitis; M75.00 Adhesive capsulitis of unspecified shoulder; M75.41 Impingement syndrome of right shoulder; M77.9 Enthesopathy, unspecified; R32 Unspecified urinary incontinence; Z86.73 Personal history of transient ischemic attack (TIA), and cerebral infarction without residual deficits; F31.9 Bipolar disorder, unspecified; Z88.0 Allergy status to penicillin; Z88.5 Allergy status to narcotic agent; Z90.710 Acquired absence of both cervix and uterus
CPT/HCPCS: 23120; 23130; 23412; 24110; 36415 ×3; 80048; 81001; 82948 ×2; 85014 ×4; 85018 ×4; 86850; 86900; 86901; 86922; 88304; 88311; 94664; 94760; 96365; 96366 ×2; 96372; 96375; 96376; 97116; 97161; A4510; A4600; A4606; A6223; C1713 ×2; G0378 ×33; G8978; G8979; G8980; G8981; G8982; G8983; J1170 ×3; J2250; J2405; J2550; J2795; J3010; J3370 ×3; J7120

== ENCOUNTER 2018-09-20 21:53 | Emergency (ER) | payer MEDICAID ==
[~2018-09-20 21:53] MED LIST changes: -PHARMACY COMMUNICATION MISC SCH; +TRAM50TA4 PO
[2018-09-20] MEDS ORDERED: HALOPERIDOL LACTATE 5 MG/ML VIAL ONE (22:18)
[2018-09-20 22:26] LABS: BASOPHILS % (AUTO) 0.8 % (0.0-5.0); EOSINOPHILS % (AUTO) 0.4 % (0.0-8.0); HEMATOCRIT 31.3 % (36-48); LYMPHOCYTES % (AUTO) 11.9 % (21.0-51.0); MEAN CORPUSCULAR HEMOGLOBIN 30.4 pg (27.0-33.0); MEAN CORPUSCULAR HGB CONC 34.2 g/dL (32.0-36.0); MEAN CORPUSCULAR VOLUME 89.1 fL (79-99); MONOCYTES % (AUTO) 5.8 % (3.0-13.0); NEUTROPHILS % (AUTO) 81.1 % (40.0-77.0); NUCLEATED RED BLOOD CELLS 0.1 % (0.0-0.19); PLATELET COUNT (AUTO) 292 K/uL (130-400); RED BLOOD CELL COUNT(AUTO) 3.52 MIL/uL (4.00-5.50); RED CELL DISTRIBUTION WIDTH 13.6 % (11.0-15.5); WHITE BLOOD COUNT (AUTO) 14.1 K/uL (4.8-10.8)
[2018-09-20 22:37] LABS: CARBON DIOXIDE 23 mmol/L (21-32); CHLORIDE 103 mmol/L (101-111); CREATININE 0.7 mg/dL (0.5-1.5); GLOMERULAR FILTR. RATE CALC 92 mL/min (>60); GLUCOSE,RANDOM 113 mg/dL (70-105); POTASSIUM 3.5 mmol/L (3.5-5.1); SODIUM SERUM 142 mmol/L (136-145); UREA NITROGEN, BLOOD 26 mg/dL (7-18)
[2018-09-20 22:42] LABS: ALANINE AMINOTRANSFERASE 52 U/L (12-78); ASPARTATE AMINOTRANSFERASE 67 U/L (10-37); BILIRUBIN,TOTAL 1.3 mg/dL (0.2-1.0); TOTAL PROTEIN, SERUM 7.2 g/dL (6.0-8.3)
[2018-09-20 22:51] LABS: ACETAMINOPHEN < 1 mcg/mL (10-30); ALCOHOL, BLOOD < 3 mg/dL (0-10); SALICYLATE < 2.8 mg/dL (2.8-20.0)
[2018-09-20 23:17] LABS: APPEARANCE,URINE Clear (CLEAR); BILIRUBIN,URINE Negative (NEGATIVE); COLOR,URINE Yellow (YELLOW); GLUCOSE, URINE (UA) Negative (NEGATIVE); KETONES,URINE >=160 mg/dL (NEGATIVE); LEUKOCYTE ESTERASE ,URINE Small (NEGATIVE); NITRATE,URINE Negative (NEGATIVE); OCCULT BLOOD,URINE Trace (NEGATIVE); PH,URINE 5.5 (5.0-8.0); PROTEIN,URINE Negative (NEGATIVE)
[2018-09-20 23:24] LABS: AMPHET/METH SCREEN,URINE NEGATIVE (NEGATIVE); BARBITURATE SCREEN, URINE NEGATIVE (NEGATIVE); BENZODIAZEPINES SCREEN,URINE NEGATIVE (NEGATIVE); CANNABINOID SCREEN,URINE NEGATIVE (NEGATIVE); COCAINE SCREEN,URINE NEGATIVE (NEGATIVE); OPIATE SCREEN,URINE NEGATIVE (NEGATIVE); PHENCYCLIDINE SCREEN,URINE NEGATIVE (NEGATIVE)
[2018-09-20 23:38] LABS: BACTERIA,URINE Rare /HPF (None Seen); MUCUS,URINE Rare LPF (None Seen); RBC,URINE 0-1 /HPF (0-1); SQUAMOUS EPITHELIAL CELL,UR 0-2 /HPF (0-2)
[2018-09-20] MEDS ORDERED: SODIUM CHLORIDE 0.9% 1000ML 1,000 ML IV ONE (23:47)
[2018-09-21] MEDS ORDERED: HALOPERIDOL LACTATE 5 MG/ML VIAL ONE (01:18)
[2018-09-21] MEDS ORDERED: SODIUM CHLORIDE 0.9% 1000ML 1,000 ML IV ONE (01:18)
[2018-09-21] MEDS ORDERED: ZIPRASIDONE MESYLATE 20 MG/VIAL IM ONE (06:39)
[2018-09-21] MEDS ORDERED: DiphenhydrAMINE HCL 50 MG/ML VIAL ONE (07:40)
== END 2018-09-21 08:55 | disposition short-term general hospital (02) ==
LOC: EDH 21:53
DX: F23 Brief psychotic disorder (principal); F22 Delusional disorders; F31.9 Bipolar disorder, unspecified; J44.9 Chronic obstructive pulmonary disease, unspecified; E78.5 Hyperlipidemia, unspecified; I10 Essential (primary) hypertension; Z91.14 Patient's other noncompliance with medication regimen; Z90.710 Acquired absence of both cervix and uterus; Z90.49 Acquired absence of other specified parts of digestive tract; Z88.1 Allergy status to other antibiotic agents; Z88.6 Allergy status to analgesic agent; Z88.2 Allergy status to sulfonamides; Z88.0 Allergy status to penicillin; Z88.5 Allergy status to narcotic agent; Z88.8 Allergy status to other drugs, medicaments and biological substances
CPT/HCPCS: 36415; 80053; 80305; 81001; 85025; 93005; 96361; 96372; 96374; 96375; 96376; 99285; A4218; G0480 ×2; G0481; J1200; J1630 ×2; J3486; J7030 ×2

== ENCOUNTER 2018-10-12 00:05 | Emergency (ER) | payer MEDICAID ==
[2018-10-12] MEDS ORDERED: SODIUM CHLORIDE 0.9% 1000ML 1,000 ML IV ONE (00:57)
[2018-10-12] MEDS ORDERED: LOPERAMIDE HCL 2 MG CAP PO ONE (00:57)
[2018-10-12 01:14] LABS: BASOPHILS % (AUTO) 0.7 % (0.0-5.0); EOSINOPHILS % (AUTO) 0.7 % (0.0-8.0); HEMATOCRIT 34.7 % (36-48); LYMPHOCYTES % (AUTO) 7.6 % (21.0-51.0); MEAN CORPUSCULAR HGB CONC 33.5 g/dL (32.0-36.0); MEAN CORPUSCULAR VOLUME 89.7 fL (79-99); NUCLEATED RED BLOOD CELLS 0.1 % (0.0-0.19); PLATELET COUNT (AUTO) 420 K/uL (130-400); RED BLOOD CELL COUNT(AUTO) 3.87 MIL/uL (4.00-5.50); RED CELL DISTRIBUTION WIDTH 13.4 % (11.0-15.5); WHITE BLOOD COUNT (AUTO) 11.3 K/uL (4.8-10.8)
[2018-10-12 01:30] LABS: CREATININE 0.5 mg/dL (0.5-1.5)
[2018-10-12 01:36] LABS: ALBUMIN 3.4 g/dL (3.5-5.0); BILIRUBIN,TOTAL 0.4 mg/dL (0.2-1.0)
== END 2018-10-12 02:09 | disposition home or self-care (01) ==
LOC: EDH 00:05
DX: K59.00 Constipation, unspecified (principal); F31.9 Bipolar disorder, unspecified; J44.9 Chronic obstructive pulmonary disease, unspecified; E78.5 Hyperlipidemia, unspecified; I10 Essential (primary) hypertension; F20.9 Schizophrenia, unspecified; Z90.49 Acquired absence of other specified parts of digestive tract; Z90.710 Acquired absence of both cervix and uterus; Z87.891 Personal history of nicotine dependence; Z88.1 Allergy status to other antibiotic agents; Z88.6 Allergy status to analgesic agent; Z88.5 Allergy status to narcotic agent; Z88.0 Allergy status to penicillin; Z88.2 Allergy status to sulfonamides; Z88.7 Allergy status to serum and vaccine; Z88.8 Allergy status to other drugs, medicaments and biological substances
CPT/HCPCS: 36415; 80053; 85025; 96360; 99283; J7030

== ENCOUNTER → 2019-10-26 | Outpatient (CLI) | payer MEDICAID ==
[~2019-10-26] MED LIST changes: -EZET10 PO; +EZET10TA13 PO; -OXYB5TAB10 PO; +OXYB5TAB15 PO
== END | disposition home or self-care (01) ==
LOC: SHCH 10:00
PROVIDERS: ATTEND Internal Medicine Cardiovascular Disease
DX: I87.2 Venous insufficiency (chronic) (peripheral) (principal); I73.9 Peripheral vascular disease, unspecified
CPT/HCPCS: 93925; 93970

== ENCOUNTER 2019-11-06 17:09 | Emergency (ER) | payer MEDICAID ==
[2019-11-06 17:54] LABS: APPEARANCE,URINE Cloudy (CLEAR); BASOPHILS % (AUTO) 0.3 % (0.0-5.0); BILIRUBIN,URINE Negative (NEGATIVE); COLOR,URINE Yellow (YELLOW); EOSINOPHILS % (AUTO) 0.5 % (0.0-8.0); GLUCOSE, URINE (UA) Negative (NEGATIVE); HEMATOCRIT 37.6 % (36-48); KETONES,URINE Negative (NEGATIVE); LEUKOCYTE ESTERASE ,URINE Large (NEGATIVE); MEAN CORPUSCULAR HEMOGLOBIN 28.8 pg (27.0-33.0); MEAN CORPUSCULAR HGB CONC 33.2 g/dL (32.0-36.0); MEAN CORPUSCULAR VOLUME 86.6 fL (79-99); MONOCYTES % (AUTO) 5.6 % (3.0-13.0); NEUTROPHILS % (AUTO) 69.1 % (40.0-77.0); NITRATE,URINE Negative (NEGATIVE); OCCULT BLOOD,URINE Trace (NEGATIVE); PLATELET COUNT (AUTO) 288 K/uL (130-400); PROTEIN,URINE Negative (NEGATIVE); RED BLOOD CELL COUNT(AUTO) 4.34 MIL/uL (4.00-5.50); RED CELL DISTRIBUTION WIDTH 12.9 % (11.0-15.5); UROBILINOGEN,URINE 0.2 mg/dL (0.2-1.0); WHITE BLOOD COUNT (AUTO) 8.7 K/uL (4.8-10.8)
[2019-11-06 18:05] LABS: CREATININE 0.6 mg/dL (0.5-1.5); POTASSIUM 3.9 mmol/L (3.5-5.1)
[2019-11-06 18:09] LABS: ALBUMIN 4.3 g/dL (3.5-5.0); BILIRUBIN,TOTAL 0.3 mg/dL (0.2-1.0); TOTAL PROTEIN, SERUM 8.2 g/dL (6.0-8.3)
[2019-11-06 18:23] LABS: BACTERIA,URINE Few /HPF (None Seen)
[2019-11-06 18:24] LABS: SQUAMOUS EPITHELIAL CELL,UR 0-2 /HPF (0-2)
== END 2019-11-06 18:51 | disposition home or self-care (01) ==
LOC: EDH 17:09
DX: N39.0 Urinary tract infection, site not specified (principal); I10 Essential (primary) hypertension; E78.5 Hyperlipidemia, unspecified; J44.9 Chronic obstructive pulmonary disease, unspecified; F31.9 Bipolar disorder, unspecified; Z90.710 Acquired absence of both cervix and uterus; Z98.890 Other specified postprocedural states; Z88.2 Allergy status to sulfonamides; Z88.5 Allergy status to narcotic agent; Z88.1 Allergy status to other antibiotic agents; Z88.7 Allergy status to serum and vaccine; Z88.8 Allergy status to other drugs, medicaments and biological substances; Z88.0 Allergy status to penicillin; Z72.0 Tobacco use
CPT/HCPCS: 36415; 71046; 80053; 81001; 82550; 83690; 85025

== ENCOUNTER 2020-02-02 19:27 | Emergency (ER) | payer MEDICAID ==
[2020-02-02 20:26] LABS: RAPID GROUP A STREP NEGATIVE (NEGATIVE)
[2020-02-02] MEDS ORDERED: CEPHALEXIN 500 MG CAPSULE ONE (21:10)
== END 2020-02-02 21:21 | disposition home or self-care (01) ==
LOC: EDH 19:27
DX: J02.9 Acute pharyngitis, unspecified (principal); I10 Essential (primary) hypertension; R51 Headache; R35.0 Frequency of micturition; M54.9 Dorsalgia, unspecified; J44.9 Chronic obstructive pulmonary disease, unspecified; F31.9 Bipolar disorder, unspecified; E78.5 Hyperlipidemia, unspecified; Z88.1 Allergy status to other antibiotic agents; Z88.6 Allergy status to analgesic agent; Z88.8 Allergy status to other drugs, medicaments and biological substances; Z79.899 Other long term (current) drug therapy; Z90.710 Acquired absence of both cervix and uterus; Z98.890 Other specified postprocedural states; Z87.891 Personal history of nicotine dependence
CPT/HCPCS: 87804; 87880

== ENCOUNTER 2020-05-25 18:39 | Emergency (ER) | payer MEDICAID ==
[2020-05-25 19:00] LABS: BASOPHILS % (AUTO) 0.5 % (0.0-5.0); EOSINOPHILS % (AUTO) 2.2 % (0.0-8.0); HEMATOCRIT 35.2 % (36-48); LYMPHOCYTES % (AUTO) 30.9 % (21.0-51.0); MEAN CORPUSCULAR HEMOGLOBIN 29.8 pg (27.0-33.0); MEAN CORPUSCULAR HGB CONC 34.7 g/dL (32.0-36.0); MEAN CORPUSCULAR VOLUME 86.1 fL (79-99); MONOCYTES % (AUTO) 7.8 % (3.0-13.0); NEUTROPHILS % (AUTO) 58.4 % (40.0-77.0); PLATELET COUNT (AUTO) 256 K/uL (130-400); RED BLOOD CELL COUNT(AUTO) 4.09 MIL/uL (4.00-5.50); RED CELL DISTRIBUTION WIDTH 12.9 % (11.0-15.5); WHITE BLOOD COUNT (AUTO) 8.8 K/uL (4.8-10.8)
[2020-05-25] MEDS ORDERED: METHYLPREDNISOLONE SOD SUCC 125MG/2ML VIAL ONE (19:05)
[2020-05-25 19:12] LABS: CREATININE 0.6 mg/dL (0.5-1.5); POTASSIUM 3.4 mmol/L (3.5-5.1)
[2020-05-25 19:14] LABS: INR 0.92 (0.85-1.15); PARTIAL THROMBOPLASTIN TIME 26.5 SEC (26.3-35.5)
[2020-05-25 19:19] LABS: B-TYPE NATRIURETIC PEPTIDE 22 pg/mL (0-100)
[2020-05-25] MEDS ORDERED: ALBUTEROL SULFATE 0.083% 2.5 MG/3 ML INH IH ONE (19:26)
[2020-05-25] MEDS ORDERED: ACETAMINOPHEN EXTRA STRENGTH 500 MG TABLET ONE (21:15)
[2020-05-25] MEDS ORDERED: LIDOCAINE 5% TOPICAL PATCH TP ONE (22:11)
== END 2020-05-26 00:20 | disposition home or self-care (01) ==
LOC: EDH 18:39
DX: J45.901 Unspecified asthma with (acute) exacerbation (principal); J44.9 Chronic obstructive pulmonary disease, unspecified; R07.89 Other chest pain; Z20.828 Contact with and (suspected) exposure to other viral communicable diseases; E78.5 Hyperlipidemia, unspecified; I10 Essential (primary) hypertension; F20.9 Schizophrenia, unspecified; Z87.891 Personal history of nicotine dependence; Z88.2 Allergy status to sulfonamides; Z88.8 Allergy status to other drugs, medicaments and biological substances; Z88.6 Allergy status to analgesic agent; Z88.3 Allergy status to other anti-infective agents; Z88.5 Allergy status to narcotic agent; Z88.0 Allergy status to penicillin
CPT/HCPCS: 36415; 71045; 80048; 82550; 83880; 84484 ×2; 85025; 85610; 85730; 87426; 87880; 93005 ×2; 94640; 96374; 99285; J2930; U0003

== ENCOUNTER → 2020-06-19 | Outpatient (CLI) | payer MEDICAID | END | disposition home or self-care (01) | LOC: SHCH 12:45 | PROVIDERS: ATTEND Internal Medicine Cardiovascular Disease | DX: Z09 Encounter for follow-up examination after completed treatment for conditions other than malignant neoplasm (principal); I87.2 Venous insufficiency (chronic) (peripheral) | CPT/HCPCS: 93971 ==

== ENCOUNTER 2020-08-14 14:31 | Emergency (ER) | payer MEDICAID ==
[2020-08-14 15:18] LABS: APPEARANCE,URINE Clear (CLEAR); BILIRUBIN,URINE Negative (NEGATIVE); COLOR,URINE Yellow (YELLOW); GLUCOSE, URINE (UA) Negative (NEGATIVE); KETONES,URINE Negative (NEGATIVE); LEUKOCYTE ESTERASE ,URINE Trace (NEGATIVE); NITRATE,URINE Negative (NEGATIVE); OCCULT BLOOD,URINE Negative (NEGATIVE); PROTEIN,URINE Negative (NEGATIVE); UROBILINOGEN,URINE 0.2 mg/dL (0.2-1.0)
[2020-08-14 15:23] LABS: BASOPHILS % (AUTO) 0.4 % (0.0-5.0); EOSINOPHILS % (AUTO) 2.8 % (0.0-8.0); HEMATOCRIT 38.7 % (36-48); LYMPHOCYTES % (AUTO) 32.1 % (21.0-51.0); MEAN CORPUSCULAR HEMOGLOBIN 29.5 pg (27.0-33.0); MEAN CORPUSCULAR HGB CONC 33.3 g/dL (32.0-36.0); MEAN CORPUSCULAR VOLUME 88.4 fL (79-99); MONOCYTES % (AUTO) 7.8 % (3.0-13.0); NEUTROPHILS % (AUTO) 56.5 % (40.0-77.0); PLATELET COUNT (AUTO) 254 K/uL (130-400); RED BLOOD CELL COUNT(AUTO) 4.38 MIL/uL (4.00-5.50); RED CELL DISTRIBUTION WIDTH 12.7 % (11.0-15.5); WHITE BLOOD COUNT (AUTO) 7.5 K/uL (4.8-10.8)
[2020-08-14 15:27] LABS: BACTERIA,URINE Rare /HPF (None Seen); RBC,URINE 0-1 /HPF (0-1)
[2020-08-14 15:28] LABS: SQUAMOUS EPITHELIAL CELL,UR Few /HPF (0-2)
[2020-08-14 15:30] LABS: CREATININE 0.7 mg/dL (0.5-1.5)
[2020-08-14 15:34] LABS: ALBUMIN 3.9 g/dL (3.5-5.0); BILIRUBIN,TOTAL 0.2 mg/dL (0.2-1.0); TOTAL PROTEIN, SERUM 7.7 g/dL (6.0-8.3)
[2020-08-14] MEDS ORDERED: SODIUM CHLORIDE 0.9% 1000ML 1,000 ML IV ONE (16:05)
[2020-08-14] MEDS ORDERED: NITROFURANTOIN MONOHYD/M-CRYST 100 MG CAPSULE PO ONE (16:05)
[2020-08-14] MEDS ORDERED: ACETAMINOPHEN EXTRA STRENGTH 500 MG TABLET ONE (16:38)
== END 2020-08-14 17:00 | disposition home or self-care (01) ==
LOC: EDH 14:31
DX: N39.0 Urinary tract infection, site not specified (principal); F31.9 Bipolar disorder, unspecified; J44.9 Chronic obstructive pulmonary disease, unspecified; E78.5 Hyperlipidemia, unspecified; I10 Essential (primary) hypertension; F20.9 Schizophrenia, unspecified; Z90.49 Acquired absence of other specified parts of digestive tract; Z90.710 Acquired absence of both cervix and uterus; Z87.891 Personal history of nicotine dependence; Z88.0 Allergy status to penicillin; Z88.5 Allergy status to narcotic agent; Z88.2 Allergy status to sulfonamides; Z88.6 Allergy status to analgesic agent; Z88.8 Allergy status to other drugs, medicaments and biological substances
CPT/HCPCS: 36415; 80053; 81001; 82150; 83690; 85025; 93005; 96360; 99284; J7030

== ENCOUNTER 2020-11-14 15:28 | Emergency (ER) | payer MEDICAID ==
[2020-11-14 16:15] LABS: BASOPHILS % (AUTO) 0.4 % (0.0-5.0); EOSINOPHILS % (AUTO) 1.9 % (0.0-8.0); HEMATOCRIT 37.6 % (36-48); LYMPHOCYTES % (AUTO) 29.7 % (21.0-51.0); MEAN CORPUSCULAR HEMOGLOBIN 29.7 pg (27.0-33.0); MEAN CORPUSCULAR HGB CONC 33.8 g/dL (32.0-36.0); MEAN CORPUSCULAR VOLUME 88.1 fL (79-99); MONOCYTES % (AUTO) 7.6 % (3.0-13.0); PLATELET COUNT (AUTO) 216 K/uL (130-400); RED BLOOD CELL COUNT(AUTO) 4.27 MIL/uL (4.00-5.50); RED CELL DISTRIBUTION WIDTH 12.5 % (11.0-15.5); WHITE BLOOD COUNT (AUTO) 7.4 K/uL (4.8-10.8)
[2020-11-14 16:22] LABS: CREATININE 0.7 mg/dL (0.5-1.5); POTASSIUM 3.7 mmol/L (3.5-5.1)
[2020-11-14 16:23] LABS: INR 1.02 (0.85-1.15); PROTHROMBIN TIME 11.1 SEC (9.6-11.6)
[2020-11-14 16:25] LABS: PARTIAL THROMBOPLASTIN TIME 23.9 SEC (26.3-35.5)
[2020-11-14 16:27] LABS: ALBUMIN 4.1 g/dL (3.5-5.0); BILIRUBIN,TOTAL 0.3 mg/dL (0.2-1.0); TOTAL PROTEIN, SERUM 7.8 g/dL (6.0-8.3)
[2020-11-14 16:52] LABS: APPEARANCE,URINE Clear (CLEAR); BILIRUBIN,URINE Negative (NEGATIVE); COLOR,URINE Yellow (YELLOW); GLUCOSE, URINE (UA) Negative (NEGATIVE); KETONES,URINE 15 mg/dL (NEGATIVE); LEUKOCYTE ESTERASE ,URINE Negative (NEGATIVE); NITRATE,URINE Negative (NEGATIVE); OCCULT BLOOD,URINE Negative (NEGATIVE); PH,URINE 6.5 (5.0-8.0); PROTEIN,URINE Negative (NEGATIVE); UROBILINOGEN,URINE 0.2 mg/dL (0.2-1.0)
[2020-11-14 16:59] LABS: AMPHET/METH SCREEN,URINE NEGATIVE (NEGATIVE); BARBITURATE SCREEN, URINE NEGATIVE (NEGATIVE); BENZODIAZEPINES SCREEN,URINE NEGATIVE (NEGATIVE); CANNABINOID SCREEN,URINE NEGATIVE (NEGATIVE); COCAINE SCREEN,URINE NEGATIVE (NEGATIVE); OPIATE SCREEN,URINE NEGATIVE (NEGATIVE); PHENCYCLIDINE SCREEN,URINE NEGATIVE (NEGATIVE)
[2020-11-14] MEDS ORDERED: KETOROLAC 15MG/ML VIAL (15MG/ML) ONE (19:57)
[2021-04-16] MEDS ORDERED: CYCL10TA16 PO (22:01)
== END 2020-11-14 20:30 | disposition home or self-care (01) ==
LOC: EDH 15:28
DX: M94.0 Chondrocostal junction syndrome [Tietze] (principal); E78.5 Hyperlipidemia, unspecified; I10 Essential (primary) hypertension; J44.9 Chronic obstructive pulmonary disease, unspecified; F31.9 Bipolar disorder, unspecified; F20.9 Schizophrenia, unspecified; Z88.2 Allergy status to sulfonamides; Z88.1 Allergy status to other antibiotic agents; Z88.6 Allergy status to analgesic agent; Z88.8 Allergy status to other drugs, medicaments and biological substances
CPT/HCPCS: 36415; 71045; 80053; 80305; 81003; 84484; 85025; 85610; 85730; 93005; 96374; 99285; J1885

== ENCOUNTER → 2020-12-07 | Outpatient (CLI) | payer MEDICAID | END | disposition home or self-care (01) | LOC: SHCH 07:57 | PROVIDERS: ATTEND Internal Medicine Cardiovascular Disease | DX: I87.2 Venous insufficiency (chronic) (peripheral) (principal) | CPT/HCPCS: 93971 ==

== ENCOUNTER 2020-12-25 15:02 | Emergency (ER) | payer MEDICAID ==
[2020-12-25 16:00] LABS: BASOPHILS % (AUTO) 0.4 % (0.0-5.0); EOSINOPHILS % (AUTO) 1.2 % (0.0-8.0); HEMATOCRIT 33.6 % (36-48); LYMPHOCYTES % (AUTO) 26.9 % (21.0-51.0); MEAN CORPUSCULAR HEMOGLOBIN 29.9 pg (27.0-33.0); MEAN CORPUSCULAR HGB CONC 34.8 g/dL (32.0-36.0); MEAN CORPUSCULAR VOLUME 85.9 fL (79-99); MONOCYTES % (AUTO) 7.2 % (3.0-13.0); PLATELET COUNT (AUTO) 260 K/uL (130-400); RED BLOOD CELL COUNT(AUTO) 3.91 MIL/uL (4.00-5.50); RED CELL DISTRIBUTION WIDTH 12.9 % (11.0-15.5); WHITE BLOOD COUNT (AUTO) 7.7 K/uL (4.8-10.8)
[2020-12-25 16:02] LABS: APPEARANCE,URINE Clear (CLEAR); BILIRUBIN,URINE Negative (NEGATIVE); COLOR,URINE Yellow (YELLOW); GLUCOSE, URINE (UA) Negative (NEGATIVE); KETONES,URINE 40 mg/dL (NEGATIVE); LEUKOCYTE ESTERASE ,URINE Small (NEGATIVE); NITRATE,URINE Negative (NEGATIVE); OCCULT BLOOD,URINE Negative (NEGATIVE); PROTEIN,URINE Negative (NEGATIVE)
[2020-12-25 16:11] LABS: CREATININE 0.6 mg/dL (0.5-1.5); POTASSIUM 3.7 mmol/L (3.5-5.1)
[2020-12-25 16:12] LABS: INR 1.01 (0.85-1.15)
[2020-12-25 16:13] LABS: PARTIAL THROMBOPLASTIN TIME 25.8 SEC (26.3-35.5)
[2020-12-25 16:15] LABS: BILIRUBIN,TOTAL 0.8 mg/dL (0.2-1.0); TOTAL PROTEIN, SERUM 7.4 g/dL (6.0-8.3)
[2020-12-25] MEDS ORDERED: SODIUM CHLORIDE 0.9% 1000ML 1,000 ML IV ONE (16:22)
[2020-12-25] MEDS ORDERED: ONDANSETRON HCL 4 MG/2 ML VIAL ONE (16:22)
[2020-12-25] MEDS ORDERED: FAMOTIDINE/PF 20 MG/2 ML VIAL IV ONE (16:23)
[2020-12-25] MEDS ORDERED: KETOROLAC TROMETHAMINE 15MG/ML ONE (16:23)
[2020-12-25 16:27] LABS: BACTERIA,URINE Rare /HPF (None Seen); MUCUS,URINE Few LPF (None Seen); RBC,URINE 0-1 /HPF (0-1); SQUAMOUS EPITHELIAL CELL,UR Few /HPF (0-2)
== END 2020-12-25 18:32 | disposition home or self-care (01) ==
LOC: EDH 15:02
DX: K29.00 Acute gastritis without bleeding (principal); K59.00 Constipation, unspecified; K64.4 Residual hemorrhoidal skin tags; J44.9 Chronic obstructive pulmonary disease, unspecified; F31.9 Bipolar disorder, unspecified; E78.5 Hyperlipidemia, unspecified; I10 Essential (primary) hypertension; F20.9 Schizophrenia, unspecified; Z90.49 Acquired absence of other specified parts of digestive tract; Z90.710 Acquired absence of both cervix and uterus; Z87.891 Personal history of nicotine dependence; Z88.2 Allergy status to sulfonamides; Z88.5 Allergy status to narcotic agent; Z88.0 Allergy status to penicillin; Z88.8 Allergy status to other drugs, medicaments and biological substances; Z88.6 Allergy status to analgesic agent
CPT/HCPCS: 36415; 74021; 80053; 81001; 82270; 85025; 85610; 85730; 96361; 96374; 96375; 99284; J1885; J2405; J3490; J7030

== ENCOUNTER 2021-03-20 19:25 | Emergency (ER) | payer MEDICAID ==
[~2021-03-20] VITALS: Ht 160 cm; Wt 90.7 kg
[2021-03-20 19:28] VITALS: BP 126/74
[2021-03-20] MEDS ORDERED: LACTATED RINGERS 1000ML 1,000 ML IV ONE (21:15)
[2021-03-20 21:23] LABS: BASOPHILS % (AUTO) 0.4 % (0.0-5.0); HEMATOCRIT 35.9 % (36-48); LYMPHOCYTES % (AUTO) 25.9 % (21.0-51.0); MEAN CORPUSCULAR HEMOGLOBIN 30.1 pg (27.0-33.0); MEAN CORPUSCULAR HGB CONC 33.7 g/dL (32.0-36.0); MEAN CORPUSCULAR VOLUME 89.3 fL (79-99); NEUTROPHILS % (AUTO) 64.4 % (40.0-77.0); PLATELET COUNT (AUTO) 260 K/uL (130-400); RED BLOOD CELL COUNT(AUTO) 4.02 MIL/uL (4.00-5.50)
[2021-03-20 21:31] LABS: CREATININE 0.6 mg/dL (0.5-1.5); POTASSIUM 4.1 mmol/L (3.5-5.1)
[2021-03-20 21:40] LABS: ALBUMIN 3.7 g/dL (3.5-5.0); BILIRUBIN,TOTAL 0.2 mg/dL (0.2-1.0); TOTAL PROTEIN, SERUM 7.3 g/dL (6.0-8.3)
[2021-03-20] MEDS: FAMOTIDINE 20MG TAB PO ONE ×2 (21:52→21:56)
[2021-03-20 22:22] LABS: APPEARANCE,URINE Clear (CLEAR); BILIRUBIN,URINE Negative (NEGATIVE); COLOR,URINE Yellow (YELLOW); GLUCOSE, URINE (UA) Negative (NEGATIVE); KETONES,URINE Negative (NEGATIVE); LEUKOCYTE ESTERASE ,URINE Negative (NEGATIVE); NITRATE,URINE Negative (NEGATIVE); OCCULT BLOOD,URINE Negative (NEGATIVE); PH,URINE 5.5 (5.0-8.0); PROTEIN,URINE Negative (NEGATIVE); UROBILINOGEN,URINE 0.2 mg/dL (0.2-1.0)
[2021-03-20] MEDS ORDERED: AZIT500T2 PO (22:48)
[2021-03-20] MEDS ORDERED: AZITHROMYCIN 250 MG TABLET PO STA (23:36)
[2021-03-20] MEDS ORDERED: AZITHROMYCIN 250 MG TABLET PO ONE (23:40)
[2021-03-20 23:44] VITALS: BP 132/76
== END 2021-03-20 23:40 | disposition home or self-care (01) ==
LOC: EDH 19:25
DX: A09 Infectious gastroenteritis and colitis, unspecified (principal); J44.9 Chronic obstructive pulmonary disease, unspecified; K21.9 Gastro-esophageal reflux disease without esophagitis; F31.9 Bipolar disorder, unspecified; Z90.49 Acquired absence of other specified parts of digestive tract; Z90.710 Acquired absence of both cervix and uterus; Z88.6 Allergy status to analgesic agent; Z88.2 Allergy status to sulfonamides; Z88.1 Allergy status to other antibiotic agents; Z88.0 Allergy status to penicillin; Z88.5 Allergy status to narcotic agent; Z79.899 Other long term (current) drug therapy
CPT/HCPCS: 36415; 80053; 81003; 85025; 96360; 99283; J7120

== ENCOUNTER 2021-04-16 20:36 | Emergency (ER) | payer MEDICAID ==
[~2021-04-16] VITALS: Ht 160 cm; Wt 95.3 kg
[~2021-04-16 20:36] MED LIST changes: +AZIT500T2 PO
[2021-04-16] MEDS ORDERED: HYDROCODONE/ACETAMINOPHEN 10/325 MG TAB PO ONE (21:00)
[2021-04-16] MEDS ORDERED: CYCLOBENZAPRINE HCL 10 MG TABLET PO ONE (21:00)
[2021-04-16 21:11] LABS: APPEARANCE,URINE Clear (CLEAR); BILIRUBIN,URINE Negative (NEGATIVE); COLOR,URINE Yellow (YELLOW); GLUCOSE, URINE (UA) Negative (NEGATIVE); KETONES,URINE Negative (NEGATIVE); LEUKOCYTE ESTERASE ,URINE Moderate (NEGATIVE); NITRATE,URINE Negative (NEGATIVE); OCCULT BLOOD,URINE Negative (NEGATIVE); PH,URINE 6.5 (5.0-8.0); PROTEIN,URINE Negative (NEGATIVE); UROBILINOGEN,URINE 0.2 mg/dL (0.2-1.0)
[2021-04-16 21:22] LABS: RBC,URINE 0-1 /HPF (0-1)
[2021-04-16 21:27] LABS: BACTERIA,URINE Few /HPF (None Seen); SQUAMOUS EPITHELIAL CELL,UR Rare /HPF (0-2)
[2021-04-16] MEDS ORDERED: CEFTRIAXONE 1G VIAL IM ONE (22:00)
[2021-04-16] MEDS ORDERED: CYCL10 PO (22:01)
[2021-04-16] MEDS ORDERED: TRAM1TAB PO (22:01)
[2021-04-16] MEDS ORDERED: PHEN-847 PO (22:01)
[2021-04-16] MEDS ORDERED: NITR100C4 PO (22:01)
[2021-04-16] MEDS ORDERED: CEFTRIAXONE 1G VIAL ONE (22:42)
[2021-04-16] MEDS ORDERED: LIDOCAINE HCL-MPF 1% 2ML VIAL ONE (22:43)
== END 2021-04-16 23:24 | disposition home or self-care (01) ==
LOC: EDH 20:36
DX: N39.0 Urinary tract infection, site not specified (principal); M54.5 Low back pain; E78.00 Pure hypercholesterolemia, unspecified; J44.9 Chronic obstructive pulmonary disease, unspecified; K21.9 Gastro-esophageal reflux disease without esophagitis; Z88.0 Allergy status to penicillin; Z88.1 Allergy status to other antibiotic agents; Z88.2 Allergy status to sulfonamides; Z88.5 Allergy status to narcotic agent; Z88.6 Allergy status to analgesic agent; Z79.1 Long term (current) use of non-steroidal anti-inflammatories (NSAID); Z79.899 Other long term (current) drug therapy
CPT/HCPCS: 72100; 81001; 87088; 99284; J0696; J3490

== ENCOUNTER → 2022-01-23 | Outpatient (CLI) | payer MEDICAID ==
[~2022-01-23] MED LIST changes: +CYCL10TA16 PO; +NITR100C4 PO; +PHEN-847 PO; +TRAM1TAB2 PO
== END ==
LOC: SHCH 12:24
PROVIDERS: ATTEND Internal Medicine Cardiovascular Disease
DX: I73.9 Peripheral vascular disease, unspecified (principal); I87.2 Venous insufficiency (chronic) (peripheral)
CPT/HCPCS: 93970

== ENCOUNTER 2022-04-08 22:35 | Emergency (ER) | payer MEDICAID ==
[~2022-04-08] VITALS: Ht 162.6 cm; Wt 96.6 kg
[2022-04-08 23:35] LABS: APPEARANCE,URINE CLEAR (CLEAR); BILIRUBIN,URINE NEGATIVE (NEGATIVE); COLOR,URINE YELLOW (YELLOW); GLUCOSE, URINE (UA) NEGATIVE (NEGATIVE); KETONES,URINE NEGATIVE (NEGATIVE); LEUKOCYTE ESTERASE ,URINE NEGATIVE (NEGATIVE); NITRATE,URINE NEGATIVE (NEGATIVE); OCCULT BLOOD,URINE NEGATIVE (NEGATIVE); PH,URINE 6.5 (5.0-8.0); PROTEIN,URINE NEGATIVE (NEGATIVE); UROBILINOGEN,URINE 0.2 mg/dL (0.2-1.0)
[2022-04-09] MEDS ORDERED: CLOT12CR TP (01:17)
[2022-04-09 01:28] VITALS: BP 128/64
== END 2022-04-09 01:26 | disposition home or self-care (01) ==
LOC: EDH 22:35
DX: B37.3 Candidiasis of vulva and vagina (principal); M79.10 Myalgia, unspecified site; E78.00 Pure hypercholesterolemia, unspecified; J44.9 Chronic obstructive pulmonary disease, unspecified; K21.9 Gastro-esophageal reflux disease without esophagitis; Z79.1 Long term (current) use of non-steroidal anti-inflammatories (NSAID); Z88.0 Allergy status to penicillin; Z88.1 Allergy status to other antibiotic agents; Z88.2 Allergy status to sulfonamides; Z88.5 Allergy status to narcotic agent; Z88.6 Allergy status to analgesic agent; Z90.49 Acquired absence of other specified parts of digestive tract; Z87.891 Personal history of nicotine dependence
CPT/HCPCS: 81003

== ENCOUNTER → 2022-10-16 | Outpatient (CLI) | payer MEDICAID ==
[~2022-10-16] MED LIST changes: +CLOT12CR TP
== END | disposition home or self-care (01) ==
LOC: SHCH 12:40
PROVIDERS: ATTEND Internal Medicine Cardiovascular Disease
DX: I70.203 Unspecified atherosclerosis of native arteries of extremities, bilateral legs (principal); I87.2 Venous insufficiency (chronic) (peripheral)
CPT/HCPCS: 93925; 93970

== ENCOUNTER 2023-03-19 16:13 | Emergency (ER) | payer MEDICAID ==
[~2023-03-19] VITALS: Ht 160 cm; Wt 91.6 kg
[2023-03-19 18:11] LABS: BASOPHILS % (AUTO) 0.6 % (0.0-5.0); HEMATOCRIT 40.2 % (36-48); LYMPHOCYTES % (AUTO) 29.2 % (21.0-51.0); MEAN CORPUSCULAR HEMOGLOBIN 29.9 pg (27.0-33.0); MEAN CORPUSCULAR HGB CONC 33.8 g/dL (32.0-36.0); MEAN CORPUSCULAR VOLUME 88.4 fL (79-99); NEUTROPHILS % (AUTO) 60.8 % (40.0-77.0); PLATELET COUNT (AUTO) 107 K/uL (130-400); RED BLOOD CELL COUNT(AUTO) 4.55 MIL/uL (4.00-5.50); RED CELL DISTRIBUTION WIDTH 12.8 % (11.0-15.5); WHITE BLOOD COUNT (AUTO) 8.3 K/uL (4.8-10.8)
[2023-03-19 18:17] LABS: APPEARANCE,URINE CLEAR (CLEAR); BILIRUBIN,URINE NEGATIVE (NEGATIVE); COLOR,URINE LIGHT-YELLOW (YELLOW); GLUCOSE, URINE (UA) NEGATIVE (NEGATIVE); KETONES,URINE NEGATIVE (NEGATIVE); NITRATE,URINE NEGATIVE (NEGATIVE); PROTEIN,URINE NEGATIVE (NEGATIVE); UROBILINOGEN,URINE 0.2 mg/dL (0.2-1.0)
[2023-03-19 18:25] LABS: CREATININE 0.7 mg/dL (0.5-1.5); POTASSIUM 4.4 mmol/L (3.5-5.1)
[2023-03-19 18:31] LABS: ALBUMIN 3.9 g/dL (3.5-5.0); MAGNESIUM 1.7 mg/dL (1.80-2.40); TOTAL PROTEIN, SERUM 7.6 g/dL (6.0-8.3)
[2023-03-19 18:33] VITALS: BP 127/60
[2023-03-19 18:35] LABS: MUCUS,URINE FEW LPF (None Seen); SQUAMOUS EPITHELIAL CELL,UR RARE /HPF (0-2); WBC,URINE 0-1 /HPF (0-1)
[2023-03-19 18:42] LABS: LEUKOCYTE ESTERASE ,URINE TRACE Leu/uL (NEGATIVE); OCCULT BLOOD,URINE SMALL (NEGATIVE)
[2023-03-19] MEDS ORDERED: ACETAMINOPHEN 500 MG TABLET PO ONE (19:30)
[2023-03-19] MEDS ORDERED: METOCLOPRAMIDE 10 MG/2 ML VIAL IM ONE (19:30)
== END 2023-03-19 20:04 | disposition home or self-care (01) ==
LOC: EDH 16:13
DX: G43.909 Migraine, unspecified, not intractable, without status migrainosus (principal); E78.00 Pure hypercholesterolemia, unspecified; J44.9 Chronic obstructive pulmonary disease, unspecified; K21.9 Gastro-esophageal reflux disease without esophagitis; Z86.73 Personal history of transient ischemic attack (TIA), and cerebral infarction without residual deficits; Z88.0 Allergy status to penicillin; Z88.1 Allergy status to other antibiotic agents; Z88.2 Allergy status to sulfonamides; Z88.5 Allergy status to narcotic agent; Z88.6 Allergy status to analgesic agent; Z90.49 Acquired absence of other specified parts of digestive tract; Z20.822 Contact with and (suspected) exposure to COVID-19
CPT/HCPCS: 99285; 70450; 87635; 82550; 83735; 84484; 80053; 85025; 87804 ×2; 81001; 36415; 96372; 93005; C9803; J2765

== ENCOUNTER 2023-11-07 15:50 | Emergency (ER) | payer MEDICAID ==
[~2023-11-07] VITALS: Ht 157.5 cm; Wt 87.5 kg
[~2023-11-07 15:50] MED LIST changes: -EZET10TA13 PO; +EZET10TA81 PO; -OXYB5TAB15 PO; +OXYB5TAB20 PO
[2023-11-07 18:04] LABS: APPEARANCE,URINE CLEAR (CLEAR); BILIRUBIN,URINE NEGATIVE (NEGATIVE); COLOR,URINE LIGHT-YELLOW (YELLOW); GLUCOSE, URINE (UA) NEGATIVE (NEGATIVE); KETONES,URINE NEGATIVE (NEGATIVE); LEUKOCYTE ESTERASE ,URINE 500 Leu/uL (NEGATIVE); NITRATE,URINE NEGATIVE (NEGATIVE); OCCULT BLOOD,URINE NEGATIVE (NEGATIVE); PROTEIN,URINE NEGATIVE (NEGATIVE); UROBILINOGEN,URINE 0.2 mg/dL (0.2-1.0)
[2023-11-07 18:05] LABS: ADD UA MICROSCOPIC YES
[2023-11-07 18:10] LABS: MUCUS,URINE MOD LPF (None Seen); SQUAMOUS EPITHELIAL CELL,UR RARE /HPF (0-2)
[2023-11-07] MEDS: HYDROCODONE/ACETAMINOPHEN 5/325 MG TAB PO SCH (18:17)
[2023-11-07] MEDS: KETOROLAC 60 MG VIAL (30MG/ML) IM SCH (18:17)
[2023-11-07] MEDS ORDERED: CYCL5TAB PO (20:03)
[2023-11-07] MEDS ORDERED: KETO10 PO (20:03)
[2023-11-07] MEDS ORDERED: CIPR500T10 PO (20:03)
[2023-11-07] MEDS ORDERED: LIDO1ADH71 TP (20:03)
[2023-11-07 20:23] VITALS: BP 115/76; PULSE 79; RESP 17; O2SAT 95
== END 2023-11-07 20:43 | disposition home or self-care (01) ==
LOC: EDH 15:50
DX: S39.012A Strain of muscle, fascia and tendon of lower back, initial encounter (principal); J44.9 Chronic obstructive pulmonary disease, unspecified; E78.00 Pure hypercholesterolemia, unspecified; K21.9 Gastro-esophageal reflux disease without esophagitis; Z59.00 Homelessness unspecified; Z59.7 Insufficient social insurance and welfare support; Z86.73 Personal history of transient ischemic attack (TIA), and cerebral infarction without residual deficits; Z88.0 Allergy status to penicillin; Z88.1 Allergy status to other antibiotic agents; Z88.2 Allergy status to sulfonamides; Z88.5 Allergy status to narcotic agent; Z88.6 Allergy status to analgesic agent; Z90.49 Acquired absence of other specified parts of digestive tract; Z90.710 Acquired absence of both cervix and uterus; X58.XXXA Exposure to other specified factors, initial encounter; Y93.89 Activity, other specified; Y92.89 Other specified places as the place of occurrence of the external cause; Y99.8 Other external cause status
CPT/HCPCS: 99283; 87088; 81001; 72100; 96372; J1885

== ENCOUNTER 2024-05-02 18:42 | Emergency (ER) | payer MEDICAID ==
[~2024-05-02] VITALS: Ht 160 cm; Wt 90.3 kg
[~2024-05-02 18:42] MED LIST changes: -AZIT500T2 PO; -CLOT12CR TP; -CYCL10TA16 PO; +L AC460C PO; -NITR100C4 PO; -PHEN-847 PO; -TRAM1TAB2 PO; -TRAM50TA4 PO
[2024-05-02 19:09] LABS: SARS-CoV-2, RNA, NAAT NEGATIVE SARS CoV-2 (NEGATIVE)
[2024-05-02 19:13] LABS: INFLUENZA TYPE A Negative For Type A (NEGATIVE); INFLUENZA TYPE B Negative For Type B (NEGATIVE)
[2024-05-02] MEDS: GUAIFENESIN-DM 200/20 MG 10 ML PO ONE (19:18)
[2024-05-02] MEDS: KETOROLAC 15MG/ML VIAL (15MG/ML) IV ONE (19:19)
[2024-05-02] MEDS: IPRATROPIUM/ALBUTEROL SULFATE 3 ML SOLUTION IH ONE (19:53)
[2024-05-02 19:54] VITALS: PULSE 79; RESP 26
[2024-05-02 19:59] LABS: APPEARANCE,URINE CLEAR (CLEAR); BILIRUBIN,URINE NEGATIVE (NEGATIVE); COLOR,URINE LIGHT-YELLOW (YELLOW); GLUCOSE, URINE (UA) NEGATIVE (NEGATIVE); KETONES,URINE NEGATIVE (NEGATIVE); LEUKOCYTE ESTERASE ,URINE 500 Leu/uL (NEGATIVE); NITRATE,URINE NEGATIVE (NEGATIVE); OCCULT BLOOD,URINE NEGATIVE (NEGATIVE); PH,URINE 5.5 (5.0-8.0); PROTEIN,URINE NEGATIVE (NEGATIVE); UROBILINOGEN,URINE 0.2 mg/dL (0.2-1.0)
[2024-05-02 20:00] LABS: ADD UA MICROSCOPIC YES
[2024-05-02 20:03] LABS: BACTERIA,URINE RARE /HPF (None Seen); MUCUS,URINE RARE LPF (None Seen); NON-SQUAMOUS EPITHELIAL CELL 1 /HPF (0-2); OTHER CASTS, URINE 1 /LPF (None Seen); SQUAMOUS EPITHELIAL CELL,UR FEW /HPF (0-2)
[2024-05-02 21:06] LABS: BASOPHILS # (AUTO) 0.05 K/uL (0.00-0.20); BASOPHILS % (AUTO) 0.5 % (0.0-5.0); EOSINOPHILS # (AUTO) 0.18 K/uL (0.00-0.70); EOSINOPHILS % (AUTO) 1.7 % (0.0-8.0); HEMATOCRIT 35.3 % (36-48); IMMATURE GRANULOCYTE ABSOLUTE 0.03 K/uL (0-1); LYMPHOCYTES # (AUTO) 2.8 K/uL (1.0-4.8); LYMPHOCYTES % (AUTO) 26.7 % (21.0-51.0); MEAN CORPUSCULAR HEMOGLOBIN 31.1 pg (27.0-33.0); MEAN CORPUSCULAR HGB CONC 34.6 g/dL (32.0-36.0); MEAN CORPUSCULAR VOLUME 90.1 fL (79-99); MONOCYTES # (AUTO) 0.7 K/uL (0.1-1.0); MONOCYTES % (AUTO) 7.1 % (3.0-13.0); NEUTROPHILS # (AUTO) 6.6 K/uL (1.8-7.7); NEUTROPHILS % (AUTO) 63.7 % (40.0-77.0); PLATELET COUNT (AUTO) 226 K/uL (130-400); RED BLOOD CELL COUNT(AUTO) 3.92 MIL/uL (4.00-5.50); RED CELL DISTRIBUTION WIDTH 12.4 % (11.0-15.5); WHITE BLOOD COUNT (AUTO) 10.3 K/uL (4.8-10.8)
[2024-05-02 21:10] LABS: CREATININE 0.9 mg/dL (0.5-1.0); POTASSIUM 3.6 mmol/L (3.5-5.1)
[2024-05-02] MEDS ORDERED: LEVO750T68 PO (21:12)
[2024-05-02] MEDS ORDERED: BENZ-39 PO (21:12)
[2024-05-02 21:17] VITALS: BP 123/85; PULSE 86; RESP 20; O2SAT 98
[2024-05-02] MEDS: LEVOFLOXACIN 500 MG/D5W 100 ML 100 ML IV ONE (21:30)
[2024-05-02] MEDS ORDERED: CEFTRIAXONE 1G VIAL IVPB ONE (21:30)
== END 2024-05-02 21:45 | disposition home or self-care (01) ==
LOC: EDH 18:42
DX: N39.0 Urinary tract infection, site not specified (principal); J40 Bronchitis, not specified as acute or chronic; J44.9 Chronic obstructive pulmonary disease, unspecified; E11.9 Type 2 diabetes mellitus without complications; E78.00 Pure hypercholesterolemia, unspecified; K21.9 Gastro-esophageal reflux disease without esophagitis; F20.9 Schizophrenia, unspecified; Z90.49 Acquired absence of other specified parts of digestive tract; Z90.710 Acquired absence of both cervix and uterus; Z20.822 Contact with and (suspected) exposure to COVID-19
CPT/HCPCS: 99285; 96374; 71046; 87635; 96375; 84484; 80048; 85025; 85378; 87086; 87804 ×2; 81001; 36415; 93005; 94640; J1956; J1885

== ENCOUNTER → 2024-07-05 | Outpatient (CLI) | payer MEDICAID ==
[~2024-07-05] MED LIST changes: +BENZ-39 PO; +LEVO750T68 PO
== END | disposition home or self-care (01) ==
LOC: SHCH 12:31
PROVIDERS: ATTEND Internal Medicine Cardiovascular Disease
DX: R06.09 Other forms of dyspnea (principal); R07.9 Chest pain, unspecified; I25.84 Coronary atherosclerosis due to calcified coronary lesion
CPT/HCPCS: 93306

== ENCOUNTER 2024-10-20 16:20 | Emergency (ER) | payer MEDICAID ==
[~2024-10-20] VITALS: Ht 160 cm; Wt 80.7 kg
[2024-10-20 16:50] LABS: BASOPHILS # (AUTO) 0.05 K/uL (0.00-0.20); BASOPHILS % (AUTO) 0.8 % (0.0-5.0); EOSINOPHILS # (AUTO) 0.17 K/uL (0.00-0.70); EOSINOPHILS % (AUTO) 2.8 % (0.0-8.0); HEMATOCRIT 34.2 % (36-48); IMMATURE GRANULOCYTE ABSOLUTE 0.02 K/uL (0-1); LYMPHOCYTES # (AUTO) 2.2 K/uL (1.0-4.8); LYMPHOCYTES % (AUTO) 36.7 % (21.0-51.0); MEAN CORPUSCULAR HEMOGLOBIN 30.6 pg (27.0-33.0); MEAN CORPUSCULAR HGB CONC 34.5 g/dL (32.0-36.0); MEAN CORPUSCULAR VOLUME 88.8 fL (79-99); MONOCYTES # (AUTO) 0.7 K/uL (0.1-1.0); MONOCYTES % (AUTO) 11.2 % (3.0-13.0); NEUTROPHILS # (AUTO) 2.9 K/uL (1.8-7.7); NEUTROPHILS % (AUTO) 48.2 % (40.0-77.0); PLATELET COUNT (AUTO) 280 K/uL (130-400); RED BLOOD CELL COUNT(AUTO) 3.85 MIL/uL (4.00-5.50); RED CELL DISTRIBUTION WIDTH 12.4 % (11.0-15.5); WHITE BLOOD COUNT (AUTO) 6.1 K/uL (4.8-10.8)
--- NOTE | 2024-10-20 17:05 | HMCIMG ---
PORTABLE CHEST RADIOGRAPH INDICATION: CP COMPARISON: 05/02/2024 FINDINGS: Heart size is normal. The pulmonary vascularity and inge appear normal. No abnormal pulmonary parenchymal opacity or consolidation identified. Right hemidiaphragm is slightly elevated. No significant pleural effusion noted. No pneumothorax detected. IMPRESSION: No radiographic evidence for any acute cardiopulmonary process.
[2024-10-20 17:09] LABS: B-TYPE NATRIURETIC PEPTIDE < 5 pg/mL (0-100)
[2024-10-20 17:18] LABS: CREATININE 0.7 mg/dL (0.5-1.0); POTASSIUM 4.2 mmol/L (3.5-5.1)
[2024-10-20 17:28] LABS: ALBUMIN 3.6 g/dL (3.5-5.0); BILIRUBIN,DIRECT 0.2 mg/dL (0.0-0.3); BILIRUBIN,TOTAL 0.8 mg/dL (0.2-1.0); TOTAL PROTEIN, SERUM 7.5 g/dL (6.0-8.3)
[2024-10-20 18:09] LABS: APPEARANCE,URINE CLEAR (CLEAR); BILIRUBIN,URINE NEGATIVE (NEGATIVE); COLOR,URINE COLORLESS (YELLOW); GLUCOSE, URINE (UA) NEGATIVE (NEGATIVE); KETONES,URINE NEGATIVE (NEGATIVE); LEUKOCYTE ESTERASE ,URINE 250 Leu/uL (NEGATIVE); NITRATE,URINE NEGATIVE (NEGATIVE); OCCULT BLOOD,URINE NEGATIVE (NEGATIVE); PH,URINE 6.5 (5.0-8.0); PROTEIN,URINE NEGATIVE (NEGATIVE); UROBILINOGEN,URINE 0.2 mg/dL (0.2-1.0)
[2024-10-20 18:24] LABS: ADD UA MICROSCOPIC YES
[2024-10-20 18:25] LABS: BACTERIA,URINE RARE /HPF (None Seen); MUCUS,URINE RARE LPF (None Seen); RBC,URINE 0-1 /HPF (0-1); SQUAMOUS EPITHELIAL CELL,UR RARE /HPF (0-2)
[2024-10-20] MEDS: DICYCLOMINE HCL 20 MG TAB PO ONE (18:42)
[2024-10-20] MEDS: ondanSETRON ODT 4MG TAB SL ONE (18:42)
[2024-10-20] MEDS: FAMOTIDINE 20MG TAB PO ONE (18:42)
[2024-10-20] MEDS ORDERED: MACR100 PO (18:46)
--- NOTE | 2024-10-20 18:46 | ERN ---
General Chief Complaint: Chest Pain Stated Complaint: CHEST PAIN Time Seen by MD: 17:05 Time Seen by Midlevel: 17:05 Source: patient History of Present Illness Initial Comments Patient is a 64-year-old female presenting to the emergency department with multiple complaints. Her primary concern is that she has been having diffuse abdominal cramping that radiates to bilateral back areas. This has been for the last three days. She also reports chest tightness. Denies any shortness of breath, palpitations, nausea, vomiting, diarrhea, fever, chills, or any other symptoms at this time. Allergies: Coded Allergies: nitrofurantoin (Unverified Allergy, Mild, RASH, 10/20/24) Penicillins (Verified Allergy, Unknown, 03/26/15) Sulfa (Sulfonamide Antibiotics) (Verified Allergy, Unknown, 03/26/15) alendronate sodium (Unverified Allergy, Unknown, 08/19/18) cephalexin (Unverified Allergy, Unknown, 08/19/18) codeine (Unverified Allergy, Unknown, 08/19/18) iron (Verified Allergy, Unknown, 03/26/15) lorazepam (Verified Allergy, Unknown, 03/26/15) morphine (Verified Allergy, Unknown, 03/26/15) naproxen (Verified Allergy, Unknown, 03/26/15) pregabalin (Verified Allergy, Unknown, 03/26/15) sulfamethoxazole (Unverified Allergy, Unknown, 08/19/18) trimethoprim (Unverified Allergy, Unknown, 08/19/18) Home Meds Active Scripts Ciprofloxacin HCl (Cipro) 500 Mg Tablet, 1 TAB PO BID for 7 Days, #14 TAB 0 Re fills Prov:FERNANDO RAJPUT 10/20/24 Levofloxacin (Levaquin 750Mg Tabs) 750 Mg Tablet, 250 MG PO DAILY for 10 Days, #10 TAB 0 Refills Prov:DARBY LINTON NP 05/02/24 Benzonatate (Tessalon Perles) 100 Mg Cap, 100 MG PO Q 8 hours p.r.n. for Cough, #15 CAP 0 Refills Prov:DARBY LINTON NP 05/02/24 l Acidophil/B Lactis/B Longum (Florajen Digest 15 B Cell Cap) 15 Billion Cell Capsule, 1 EACH PO DAILY for 90 Days, #90 CAP 1 Refill Prov:SOMMER MARIE 12/27/23 Reported Medications [Calcium] No Conflict Check, 600 MG PO BID 08/19/18 [Miacalcium] No Conflict Check, 1 SPRAY NASAL DAILY -ALTERNATE NOSTRIL 08/19/18 Ibuprofen (Ibuprofen) 600 Mg Tablet, 600 MG PO Q8HPRN PRN for PAIN, TAB 08/19/18 [Stiolto] No Conflict Check, 25 MG PUFF DAILY 1 PUFF 08/19/18 Albuterol Sulfate (Albuterol Sulfate) 0.63 Mg/3 Ml Vial.neb, 0.63 MG IH Q6HPRN, INH 08/19/18 Fluticasone Propionate (Flonase Nasal [place]) 50 Mcg/[place], 1 SPRAY NASAL BID, SPRAY 08/19/18 Ezetimibe (Zetia) 10 Mg Tablet, 10 MG PO HS, TAB 08/19/18 Hydroxyzine HCl (Hydroxyzine HCl) 25 Mg Tablet, 25 MG PO TID, TAB 08/19/18 Oxybutynin Chloride (Oxybutynin Chloride) 5 Mg Tablet, 5 MG PO TID, TAB 08/19/18 Esomeprazole Magnesium (Nexium) 40 Mg Capsule.dr, 40 MG PO DAILY, CAP 09/20/17 Nitroglycerin (Nitrostat) 0.4 Mg Tab.subl, 0.4 MG SL AD, TAB.SL 09/20/17 Cyanocobalamin (Vitamin B-12) (B-12) 500 Mcg Tablet, 2000 MCG PO DAILY, TAB 09/20/17 Past Medical History Past Medical History: Bipolar, COPD, Diabetes-Type II, High Cholesterol Medical History Other: ACID REFLUX Past Surgical History: Appendectomy, Hysterectomy Surgical History Other: LT KNEE SX, LUMBAR SPINE SX Social History Social History: Lives with family, Other Female( History) History: Not Applicable ROS Dictation CONSTITUTIONAL: Negative except for HPI HEAD/FACE: Negative except for HPI EENT: Negative except for HPI RESPIRATORY: Negative except for HPI GASTROINTESTINAL/ABDOMINAL: Negative except for HPI GENITOURINARY: Negative except for HPI MUSCULOSKELETAL: Negative except for HPI INTEGUMENTARY: Negative except for HPI NEUROLOGICAL/PSYCH: Negative except for HPI HEMATOLOGIC/LYMPHATIC: Negative except for HPI All Systems Negative, Except as noted above. 13 point review of systems assessed and all negative except for above. Physical Exam Physical Exam Dictation Vital Signs reviewed General Appearance: Alert, oriented x 3, no acute distress, well developed, nourished. Head and Face: non-traumatic. Eyes: PERRL, pink conjunctivas, eyelid no trauma, anterior chamber with arcus senilis. Ears: Pinnas intact and no signs of trauma or erythema ear canals clear and no discharge TM no erythema Nose: No discharge, no bleeding. Oropharynx: Mouth normal, tongue pink, pharynx clear,no erythema, tonsils no exudates, no abscesses noted, mucous membrane moist Neck: Supple, non-tender, no thyromegaly, no masses, no JVD, no bruits Breast:Deferred Chest:No tenderness, no crepitus, no paradoxical movement, no retractions Lungs:Clear, well-ventilated, symmetric, no rales, no wheezing, no rhonchi, no stridor, good breath sounds bilaterally Heart: Regular rate, regular rhythm, no murmur, no gallops Vascular: no peripheral edema, Abdomen: Soft, positive bowel sounds, nondistended, no guarding, nontender, no rebound, no masses no hepatomegaly, no splenomegaly, no Smith's sign, no hernias. Rectal: Deferred Genital: Deferred Neurological: Normal speech, motor function intact, sensory function intact Musculoskeletal: Neck nontender, full range of motion, back nontender, full range of motion, Extremities: nontender, full range of motion Skin: Color pink, dry, no turgor, no rash, no lacerations, no abrasions, no contusions. Lymphatic: Deferred Results Laboratory and Microbiology Lab and Micro Result Laboratory Tests Test 10/20/24 16:42 10/20/24 17:52 White Blood Count 6.1 K/uL (4.8-10.8) Red Blood Count 3.85 MIL/uL (4.00-5.50) L Hemoglobin 11.8 g/dL (12.0-16.0) L Hematocrit 34.2 % (36-48) L Mean Corpuscular Volume 88.8 fL (79-99) Mean Corpuscular Hemoglobin 30.6 pg (27.0-33.0) Mean Corpuscular Hemoglobin Concent 34.5 g/dL (32.0-36.0) Red Cell Distribution Width 12.4 % (11.0-15.5) Platelet Count 280 K/uL (130-400) Mean Platelet Volume 10.4 fL (7.5-10.5) Immature Granulocyte % (Auto) 0.3 % (0-1) Neutrophils (%) (Auto) 48.2 % (40.0-77.0) Lymphocytes (%) (Auto) 36.7 % (21.0-51.0) Monocytes (%) (Auto) 11.2 % (3.0-13.0) Eosinophils (%) (Auto) 2.8 % (0.0-8.0) Basophils (%) (Auto) 0.8 % (0.0-5.0) Neutrophils # (Auto) 2.9 K/uL (1.8-7.7) Lymphocytes # (Auto) 2.2 K/uL (1.0-4.8) Monocytes # (Auto) 0.7 K/uL (0.1-1.0) Eosinophils # (Auto) 0.17 K/uL (0.00-0.70) Basophils # (Auto) 0.05 K/uL (0.00-0.20) Absolute Immature Granulocyte (auto 0.02 K/uL (0-1) Nucleated Red Blood Cells 0.0 % (0.0-0.19) Sodium Level 137 mmol/L (136-145) Potassium Level 4.2 mmol/L (3.5-5.1) Chloride Level 102 mmol/L (101-111) Carbon Dioxide Level 30 mmol/L (21-32) Blood Urea Nitrogen 11 mg/dL (7-18) Creatinine 0.7 mg/dL (0.5-1.0) Glomerular Filtration Rate Calc 97 mL/min (>90) Random Glucose 105 mg/dL (70-105) Total Calcium 8.9 mg/dL (8.5-10.1) Total Bilirubin 0.8 mg/dL (0.2-1.0) Direct Bilirubin 0.2 mg/dL (0.0-0.3) Aspartate Amino Transf (AST/SGOT) 23 U/L (10-37) Alanine Aminotransferase (ALT/SGPT) 33 U/L (12-78) Alkaline Phosphatase 133 U/L (50-136) Total Creatine Kinase 81 U/L (21-232) Troponin I High Sensitivity < 4 ng/L (4-50) L B-Type Natriuretic Peptide < 5 pg/mL (0-100) Total Protein 7.5 g/dL (6.0-8.3) Albumin 3.6 g/dL (3.5-5.0) Lipase 39 U/L (16-77) Urine Color COLORLESS (YELLOW) Urine Appearance CLEAR (CLEAR) Urine pH 6.5 (5.0-8.0) Urine Specific [place] 1.008 (1.001-1.031) Urine Protein NEGATIVE mg/dL (NEGATIVE) Urine Glucose (UA) NEGATIVE mg/dL (NEGATIVE) Urine Ketones NEGATIVE mg/dL (NEGATIVE) Urine Occult Blood NEGATIVE (NEGATIVE) Urine Nitrate NEGATIVE (NEGATIVE) Urine Bilirubin NEGATIVE mg/dL (NEGATIVE) Urine Urobilinogen 0.2 mg/dL (0.2-1.0) Urine Leukocyte Esterase 250 Shayne/uL (NEGATIVE) H Urine RBC 0-1 /HPF (0-1) Urine WBC 2-5 /HPF (0-1) H Urine Squamous Epithelial Cells RARE /HPF (0-2) Urine Bacteria RARE /HPF (None Seen) Labs Reviewed?: Yes MDM MDM: Differential diagnosis: Urinary tract infection, pancreatitis, acute cholecystitis, There are no social concerns with this patient. Prescription drug management Prescriptions will include: Cipro Medical management and examination interpretation discussions were had by me with other qualified healthcare professionals as indicated for the patient's care. ED Course Orders Procedure Category Date Status Time 12 Lead Ekg Tracing- EKG 10/20/24 Complete Technical 16:24 Cbc With Differential LAB 10/20/24 Complete 16:29 B-Type Natriuretic LAB 10/20/24 Complete Peptide 16:29 Chest 1vw RAD 10/20/24 Resulted 16:29 Creatine Kinase, Total LAB 10/20/24 Complete 16:29 Troponin I High LAB 10/20/24 Complete Sensitivity 16:29 Basic Metabolic Panel LAB 10/20/24 Complete 16:29 Hepatic Function Panel LAB 10/20/24 Complete 16:29 Lipase LAB 10/20/24 Complete 16:29 Urinalysis Profile LAB 10/20/24 Complete 17:46 Ondansetron Odt 4mg PHA 10/20/24 Complete Tab (Zofran 4mg Odt) 18:00 Famotidine 20mg Tab PHA 10/20/24 Complete (Pepcid 20mg Tab) 18:00 Dicyclomine Hcl PHA 10/20/24 Complete (Bentyl 20mg Tab) 18:00 Culture Urine TESSA 10/20/24 In Process 18:24 Current Medications Medications (Trade) Dose Ordered Sig/Vania Route PRN Reason Start Time Stop Time Status Last Admin Dose Admin Dicyclomine HCl (Bentyl 20mg Tab) 20 mg ONCE ONCE PO 10/20/24 18:00 10/20/24 18:07 DC 10/20/24 18:42 Famotidine (Pepcid 20mg Tab) 20 mg ONCE ONCE PO 10/20/24 18:00 10/20/24 18:07 DC 10/20/24 18:42 Ondansetron HCl (zoFRAN 4MG ODT) 4 mg ONCE ONCE SL 10/20/24 18:00 10/20/24 18:07 DC 10/20/24 18:42 Vital Signs Date Time Temp Pulse Resp B/P (MAP) Pulse Ox O2 Delivery O2 Flow Rate FiO2 10/20/24 19:29 97.9 82 20 131/74 99 Room Air* 0 21 10/20/24 16:21 97.9 84 20 127/75 [address] [place] [address] IMAGING REPORT Signed PATIENT: SARMAD BELLA MR#: [id number] : 1960 SEX: F AGE: 64 LOCATION: [facility] ORDER 1630 STATUS: REG ER REPORT#: [id number] SERVICE 1629 REASON: CP ORDERING PHYSICIAN: KRAYN MCDANIEL DO PROCEDURE: CXR1VW - CHEST 1VW PORTABLE CHEST RADIOGRAPH INDICATION: CP COMPARISON: 05/02/2024 FINDINGS: Heart size is normal. The pulmonary vascularity and inge appear normal. No abnormal pulmonary parenchymal opacity or consolidation identified. Right hemidiaphragm is slightly elevated. No significant pleural effusion noted. No pneumothorax detected. IMPRESSION: No radiographic evidence for any acute cardiopulmonary process. DICTATED BY: RUSLAN SEARS MD DATE: 10/20/241700 ELECTRONICALLY SIGNED BY: RUSLAN SEARS MD DATE: 01/29/25 1705 DX & DISP Disposition: Discharge Departure Impression: Primary Impression: UTI (urinary tract infection) Condition: Stable Scripts Ciprofloxacin HCl (Cipro) 500 Mg Tablet 1 TAB PO BID for 7 Days, #14 TAB 0 Refills Prov: FERNANDO RAJPUT 10/20/24 Additional Instructions: Your blood work today is unremarkable. Your urinalysis is consistent with infection. I have given you a prescription for oral antibiotics. You will need to follow up with your primary care doctor. Please also follow up with your facilities officer to discuss your GI symptoms as this could be related to your new medication. Referrals: RONALDO DURAN MD (PCP) Time of Disposition: 18:29 I have reviewed the case, and I agree with, Diagnosis and Plan I performed the substantive portion of the visit. I have reviewed and personally made and approve the management plan that is documented in the note by myself or the ALYSON. I acknowledge for responsibility for the patient's management plan. FERNANDO RAJPUT Oct 20, 2024 18:46
--- NOTE | 2024-10-20 19:28 | NUR ---
PT PLACED IN FAST TRACK AT THIS TIME. ASSUMED CARE AT THIS TIME PT AOX4 NO SIGNS OF DISTRESS OR PAIN
[2024-10-20 19:29] VITALS: BP 131/74; PULSE 82; RESP 20; TEMP 97.9; O2SAT 99
[2024-10-20] MEDS ORDERED: CIPR-278 PO (19:45)
--- NOTE | 2024-10-21 08:36 | EKG ---
[facility] Test Date: 2024-10-20 Test Time: 16:14:03 Pat Name: SARMAD BELLA Department: ED Room: Gender: F [employer] Vendor: [id number] : 1960 Requested By: KARYN MCDANIEL Order Number: [id number] Reading MD: Christian Potts Measurements Intervals [place] Rate: 82 P: 19 AK: 132 QRS: 3 QRSD: 95 T: 45 QT: 388 QTc: 455 Interpretive Statements Sinus rhythm Anteroseptal infarct, age indeterminate Compared to ECG 05/02/2024 19:04:20 Myocardial infarct finding now present Electronically Signed On 10-21-2024 19:39:26 [employer] by Christian Potts Please click the below link to view image of tracing.
== END 2024-10-20 19:47 | disposition home or self-care (01) ==
LOC: EDH 16:20
DX: N39.0 Urinary tract infection, site not specified (principal); E11.9 Type 2 diabetes mellitus without complications; E78.00 Pure hypercholesterolemia, unspecified; J44.9 Chronic obstructive pulmonary disease, unspecified; K21.9 Gastro-esophageal reflux disease without esophagitis; Z88.0 Allergy status to penicillin; Z88.1 Allergy status to other antibiotic agents; Z88.2 Allergy status to sulfonamides; Z88.5 Allergy status to narcotic agent; Z88.6 Allergy status to analgesic agent; Z90.49 Acquired absence of other specified parts of digestive tract; Z90.710 Acquired absence of both cervix and uterus
CPT/HCPCS: 36415; 71045; 80048; 80076; 81001; 82550; 83690; 83880; 84484; 85025; 87086; 93005; 99285

== ENCOUNTER → 2024-11-16 | Outpatient (CLI) | payer MEDICAID ==
[~2024-11-16] MED LIST changes: +CIPR-278 PO; +IOHEXOL 350 MG/ML 100ML INFUS..BTL IV ONE; +metoPROLOL tartRATE 1 MG/ML 5ML VIAL IV ONE
--- NOTE | 2024-11-16 15:21 | HMCIMG ---
CT CARDIAC ANGIO W/CONT. CCTA HISTORY: Chest pain COMPARISON: None TECHNIQUE: Multiple sequential axial images of the chest were obtained along with the CT angiogram of the chest study. Patient was given 100 cc of Omnipaque through intravenous route. FINDINGS: There is no evidence of pulmonary nodule or parenchymal disease. No pleural effusion or pericardial effusion is seen. There is no evidence of pneumothorax. There are normal size mediastinal and hilar lymph nodes. The heart is not enlarged. Degenerative changes of the thoracolumbar spine are present. IMPRESSION: 1. No evidence of pulmonary nodule or effusion is seen. Please see CT angiogram report of coronary arteries.
== END | disposition home or self-care (01) ==
LOC: RAH 09:22
PROVIDERS: ATTEND Internal Medicine Cardiovascular Disease
DX: R06.09 Other forms of dyspnea (principal); R07.9 Chest pain, unspecified; M47.815 Spondylosis without myelopathy or radiculopathy, thoracolumbar region
CPT/HCPCS: 75574; J3490; Q9967

== ENCOUNTER 2025-03-18 15:28 | Emergency (ER) | payer MEDICAID ==
[~2025-03-18] VITALS: Ht 162.6 cm; Wt 88.5 kg
[~2025-03-18 15:28] MED LIST changes: -IOHEXOL 350 MG/ML 100ML INFUS..BTL IV ONE; -metoPROLOL tartRATE 1 MG/ML 5ML VIAL IV ONE
--- NOTE | 2025-03-18 15:36 | ERN ---
ED Note History of Present Illness Stated Complaint: FEVER CHILIS GBW Chief Complaint: Sore Throat Time Seen by MD: 15:29 Dictation: PATIENT IS A 64-YEAR-OLD FEMALE COMING IN TODAY WITH FLU-LIKE SYMPTOMS TO INCLUDE FEVER CHILLS DRY COUGH MILD SOB. IN ADDITION SHE HAS HAD A SORE THROAT WITH PAINFUL SWALLOWING FOR THE LAST 4-5 DAYS. DENIES NAUSEA VOMITING DIARRHEA NO LOSS OF TASTE OR SMELL HAS NOT BEEN TO SEE HER PRIMARY CARE DOCTOR. Allergies: Coded Allergies: nitrofurantoin (Unverified Allergy, Mild, RASH, 10/20/24) Penicillins (Verified Allergy, Unknown, 03/26/15) Sulfa (Sulfonamide Antibiotics) (Verified Allergy, Unknown, 03/26/15) alendronate sodium (Unverified Allergy, Unknown, 08/19/18) cephalexin (Unverified Allergy, Unknown, 08/19/18) codeine (Unverified Allergy, Unknown, 08/19/18) iron (Verified Allergy, Unknown, 03/26/15) lorazepam (Verified Allergy, Unknown, 03/26/15) morphine (Verified Allergy, Unknown, 03/26/15) naproxen (Verified Allergy, Unknown, 03/26/15) pregabalin (Verified Allergy, Unknown, 03/26/15) sulfamethoxazole (Unverified Allergy, Unknown, 08/19/18) trimethoprim (Unverified Allergy, Unknown, 08/19/18) Home Meds Active Scripts Ciprofloxacin HCl (Cipro) 500 Mg Tablet, 1 TAB PO BID for 7 Days, #14 TAB 0 Refills Prov:FERNANDO RAJPUT 10/20/24 Levofloxacin (Levaquin 750Mg Tabs) 750 Mg Tablet, 250 MG PO DAILY for 10 Days, #10 TAB 0 Refills Prov:DARBY LINTON NP 05/02/24 Benzonatate (Tessalon Perles) 100 Mg Cap, 100 MG PO Q 8 hours p.r.n. for Cough, #15 CAP 0 Refills Prov:DARBY LINTON NP 05/02/24 l Acidophil/B Lactis/B Longum (Florajen Digest 15 B Cell Cap) 15 Billion Cell Capsule, 1 EACH PO DAILY for 90 Days, #90 CAP 1 Refill Prov:SOMMER MARIE 4/6/24 Reported Medications [Calcium] No Conflict Check, 600 MG PO BID 08/19/18 [Miacalcium] No Conflict Check, 1 SPRAY NASAL DAILY -ALTERNATE NOSTRIL 08/19/18 Ibuprofen (Ibuprofen) 600 Mg Tablet, 600 MG PO Q8HPRN PRN for PAIN, TAB 08/19/18 [Stiolto] No Conflict Check, 25 MG PUFF DAILY 1 PUFF 08/19/18 Albuterol Sulfate (Albuterol Sulfate) 0.63 Mg/3 Ml Vial.neb, 0.63 MG IH Q6HPRN, INH 08/19/18 Fluticasone Propionate (Flonase Nasal [place]) 50 Mcg/[place], 1 SPRAY NASAL BID, SPRAY 08/19/18 Ezetimibe (Zetia) 10 Mg Tablet, 10 MG PO HS, TAB 08/19/18 Hydroxyzine HCl (Hydroxyzine HCl) 25 Mg Tablet, 25 MG PO TID, TAB 08/19/18 Oxybutynin Chloride (Oxybutynin Chloride) 5 Mg Tablet, 5 MG PO TID, TAB 08/19/18 Esomeprazole Magnesium (Nexium) 40 Mg Capsule.dr, 40 MG PO DAILY, CAP 09/20/17 Nitroglycerin (Nitrostat) 0.4 Mg Tab.subl, 0.4 MG SL AD, TAB.SL 09/20/17 Cyanocobalamin (Vitamin B-12) (B-12) 500 Mcg Tablet, 2000 MCG PO DAILY, TAB 09/20/17 Past Medical History Past Medical History: Bipolar, COPD, Diabetes-Type II, High Cholesterol Additional Past Medical Hx: ACID REFLUX Surgical History: Appendectomy, Hysterectomy Surgical History Other: LT KNEE SX, LUMBAR SPINE SX Social History: Lives with family, Other History: Not Applicable RN Note Reviewed/Agreed w/PFSH: Yes Review of System Dictation CONSTITUTIONAL: NEGATIVE EXCEPT FOR HPI FEVER CHILLS HEAD/FACE: NEGATIVE EXCEPT FOR HPI EENT: NEGATIVE EXCEPT FOR HPI SORE THROAT RESPIRATORY: NEGATIVE EXCEPT FOR HPI DRY COUGH GASTROINTESTINAL/ABDOMINAL: NEGATIVE EXCEPT FOR HPI GENITOURINARY: NEGATIVE EXCEPT FOR HPI MUSCULOSKELETAL: NEGATIVE EXCEPT FOR HPI INTEGUMENTARY: NEGATIVE EXCEPT FOR HPI NEUROLOGICAL/PSYCH: NEGATIVE EXCEPT FOR HPI HEMATOLOGIC/LYMPHATIC: NEGATIVE EXCEPT FOR HPI ALL SYSTEMS NEGATIVE, EXCEPT NOTED ABOVE. 13 POINT REVIEW OF SYSTEMS ASSESSED AND ALL NEGATIVE EXCEPT FOR ABOVE. Initial Vital Sign VS Vital Signs Date Time Temp Pulse Resp B/P (MAP) Pulse Ox O2 Delivery O2 Flow Rate FiO2 03/18/25 15:29 99.9 110 16 137/90 99 Room Air 0 03/18/25 15:55 21 Physical Exam Dictation VITAL SIGNS REVIEWED GENERAL APPEARANCE: ALERT, ORIENTED X 3, MILD ACUTE DISTRESS, WELL DEVELOPED, NOURISHED. HEAD AND FACE: NON-TRAUMATIC. EYES: PERRL, PINK CONJUNCTIVAS, EYELID NO TRAUMA, ANTERIOR CHAMBER WITH ARCUS SENILIS. EARS: PINNAS INTACT AND NO SIGNS OF TRAUMA OR ERYTHEMA EAR CANALS CLEAR AND NO DISCHARGE TM NO ERYTHEMA NOSE: CLEAR DISCHARGE, NO BLEEDING. OROPHARYNX: MOUTH NORMAL, TONGUE PINK, PHARYNX CLEAR, MILD PHARYNGEAL ERYTHEMA, TONSILS NO EXUDATES, NO ABSCESSES NOTED, MUCOUS MEMBRANE MOIST UVULA MIDLINE, VOICE IS CLEAR NECK: SUPPLE, NON-TENDER, NO THYROMEGALY, NO MASSES, NO JVD, NO BRUITS BREAST:DEFERRED CHEST:NO TENDERNESS, NO CREPITUS, NO PARADOXICAL MOVEMENT, NO RETRACTIONS LUNGS:CLEAR, WELL-VENTILATED, SYMMETRIC, NO RALES, NO WHEEZING, NO RHONCHI, NO STRIDOR, GOOD BREATH SOUNDS BILATERALLY NO TACHYPNEA NO RETRACTIONS HEART: REGULAR RATE, REGULAR RHYTHM, NO MURMUR, NO GALLOPS VASCULAR: NO PERIPHERAL EDEMA, ABDOMEN: SOFT, POSITIVE BOWEL SOUNDS, NONDISTENDED, NO GUARDING, NONTENDER, NO REBOUND, NO MASSES NO HEPATOMEGALY, NO SPLENOMEGALY, NO PARRY'S SIGN, NO HERNIAS. RECTAL: DEFERRED GENITAL: DEFERRED NEUROLOGICAL: NORMAL SPEECH, MOTOR FUNCTION INTACT, SENSORY FUNCTION INTACT MUSCULOSKELETAL: NECK NONTENDER, FULL RANGE OF MOTION, BACK NONTENDER, FULL RANGE OF MOTION, EXTREMITIES: NONTENDER, FULL RANGE OF MOTION SKIN: COLOR PINK, DRY, NO TURGOR, NO RASH, NO LACERATIONS, NO ABRASIONS, NO CONTUSIONS. LYMPHATIC: DEFERRED Results (Laboratory/Radiology) Laboratory/Radiology Laboratory Tests Test 03/18/25 15:40 03/18/25 15:52 Influenza Type A Antigen Negative For Type A Influenza Type B Antigen Negative For Type B SARS-CoV-2 Antigen (Rapid) POSITIVE FOR SARS AG Group A Streptococcus Rapid negative (NEGATIVE) Urine Color COLORLESS (YELLOW) Urine Appearance CLEAR (CLEAR) Urine pH 6.0 (5.0-8.0) Urine Specific [place] 1.007 (1.001-1.031) Urine Protein NEGATIVE mg/dL (NEGATIVE) Urine Glucose (UA) NEGATIVE mg/dL (NEGATIVE) Urine Ketones NEGATIVE mg/dL (NEGATIVE) Urine Occult Blood NEGATIVE (NEGATIVE) Urine Nitrate NEGATIVE (NEGATIVE) Urine Bilirubin NEGATIVE mg/dL (NEGATIVE) Urine Urobilinogen 0.2 mg/dL (0.2-1.0) Urine Leukocyte Esterase NEGATIVE Shayne/uL CHEST X-RAY NEGATIVE Labs Reviewed?: Yes ED Course ED Course Orders Procedure Category Date Status Time Covid19 (Sars Antigen LAB 03/18/25 Complete Rapid) 15:31 Influenza Type A & B, LAB 03/18/25 Complete Rapid 15:31 Rapid (Group A Strep) LAB 03/18/25 Complete 15:31 Chest 1vw RAD 03/18/25 Resulted 15:31 Acetaminophen 500mg PHA 03/18/25 Complete Tab (Tylenol 500mg T 16:00 Dexamethasone 4mg/Ml PHA 03/18/25 Complete 1ml Vial (Dexametha 16:00 Urinalysis Profile LAB 03/18/25 Complete 15:47 Acetaminophen 500mg PHA 03/18/25 Complete Tab (Tylenol 500mg T 16:00 Dexamethasone 4mg/Ml PHA 03/18/25 Complete 1ml Vial (Dexametha 16:00 Current Medications Medications (Trade) Dose Ordered Sig/Vania Route PRN Reason Start Time Stop Time Status Last Admin Dose Admin Acetaminophen (TYLenol 500MG TAB) 1,000 mg ONCE PO 03/18/25 16:00 03/18/25 15:54 DC 03/18/25 15:44 Acetaminophen (TYLenol 500MG TAB) 1,000 mg ONCE ONCE PO 03/18/25 16:00 03/18/25 16:01 DC Dexamethasone Sodium Phosphate (dexaMETHasone 4MG/ML 1ML VIAL) 8 mg ONCE IM 03/18/25 16:00 03/18/25 15:54 DC 03/18/25 15:44 Dexamethasone Sodium Phosphate (dexaMETHasone 4MG/ML 1ML VIAL) 8 mg ONCE ONCE IM 03/18/25 16:00 03/18/25 16:01 DC Vital Signs Date Time Temp Pulse Resp B/P (MAP) Pulse Ox O2 Delivery O2 Flow Rate FiO2 03/18/25 15:55 99.9 110 20 130/90 99 Room Air* 0 21 03/18/25 15:29 99.9 110 16 137/90 99 Room Air 0 Medical Decision Making MDM MEDICAL DISCHARGE MAKING BASED ON SWABS FOR FLU COVID AND STREP AND CHEST X-RAY. PATIENT POSITIVE FOR SARS COVID 19 REMAINDER OF LABS INCLUDING CHEST X-RAY NEGATIVE DISCHARGED HOME WITH SUPPORTIVE CARE AND TOLD TO FOLLOW UP WITH HER DOCTOR DX & DISP Disposition: Discharge Departure Impression: Primary Impression: COVID-19 virus infection Additional Impression: Cough Condition: Stable Scripts Benzonatate (Tessalon Perles) 100 Mg Cap 200 MG PO TID for cough, #60 CAP 0 Refills Prov: KEN KEARNEY NP 03/18/25 Nirmatrelvir/Ritonavir (Paxlovid 300/150-100Mg(Severe)) 150 Mg (6)-100 Mg (5) Tab.ds.pk 1 EACH PO AD for 5 Days, #30 TAB TAKE TWO NIRMATRELVIR 150 MG TABS WITH 1 RITONAVIR 100 MG TWICE A DAY FOR FIVE DAYS Prov: KEN KEARNEY NP 03/18/25 Additional Instructions: FOLLOW-UP WITH PRIMARY CARE PROVIDER IN 1 TO 2 DAYS. TAKE MEDICATIONS DIRECTED HERE IN THE EMERGENCY ROOM. OKAY TO CONTINUE HOME MEDICATIONS UNLESS OTHERWISE DISCUSSED DURING YOUR VISIT IN THE EMERGENCY ROOM TODAY. RETURN TO YOUR NEAREST EMERGENCY ROOM IF SYMPTOMS WORSEN OR IF THERE IS NO IMPROVEMENT. CALL 911 IF YOU NEED IMMEDIATE ASSISTANCE. TAKE TYLENOL OR MOTRIN [id number] NEEDED AND IF NO CONTRAINDICATIONS ARE PRESENT. INCREASE ORAL HYDRATION. A WOUND CULTURE OR URINE CULTURE WAS ORDERED HERE IN THE EMERGENCY ROOM DEPARTMENT PLEASE FOLLOW-UP WITH PRIMARY CARE PROVIDER AND ADVISE THEM TO GET REPEAT PORTS FROM OUR FACILITY. IF YOU HAD ANY GALINA WRAP/SPLINTS THAT WERE APPLIED HERE, PLEASE DO NOT REMOVE THEM UNTIL YOU SEE YOUR PRIMARY CARE OR SPECIALTY. TAKE PAXLOVID DIRECTED UNTIL GONE. TYLENOL OR MOTRIN [id number] NEEDED FOR FEVER AND PAIN. INCREASE YOUR WATER INTAKE. SEE YOUR PRIMARY CARE DOCTOR FOR FOLLOW UP AND MANAGEMENT. Referrals: RONALDO DURAN MD (PCP) Time of Disposition: 16:34 I have reviewed the case, and I agree with, Diagnosis and Plan KEN KEARNEY NP Mar 18, 2025 15:36
[2025-03-18] MEDS: dexaMETHasone SOD PHOSPHATE 4 MG/ML 1ML VIAL IM SCH (15:44)
[2025-03-18] MEDS: acetaMINOPHEN 500 MG TABLET PO SCH (15:44)
[2025-03-18 15:55] VITALS: TEMP 99.9
[2025-03-18] MEDS: acetaMINOPHEN 500 MG TABLET PO ONE (16:00)
[2025-03-18] MEDS: dexaMETHasone SOD PHOSPHATE 4 MG/ML 1ML VIAL IM ONE (16:00)
[2025-03-18 16:07] LABS: APPEARANCE,URINE CLEAR (CLEAR); BILIRUBIN,URINE NEGATIVE (NEGATIVE); COLOR,URINE COLORLESS (YELLOW); GLUCOSE, URINE (UA) NEGATIVE (NEGATIVE); KETONES,URINE NEGATIVE (NEGATIVE); LEUKOCYTE ESTERASE ,URINE NEGATIVE Leu/uL (NEGATIVE); NITRATE,URINE NEGATIVE (NEGATIVE); OCCULT BLOOD,URINE NEGATIVE (NEGATIVE); PROTEIN,URINE NEGATIVE (NEGATIVE); UROBILINOGEN,URINE 0.2 mg/dL (0.2-1.0)
[2025-03-18 16:09] LABS: ADD UA MICROSCOPIC NO
[2025-03-18 16:16] LABS: RAPID GROUP A STREP negative (NEGATIVE)
--- NOTE | 2025-03-18 16:22 | HMCIMG ---
CHEST 1VW HISTORY: Cough COMPARISON: 10/20/2024 FINDINGS: A frontal projection of the chest was obtained. No acute pulmonary infiltrates is seen. The heart is borderline enlarged. Prominent interstitial markings are seen. Degenerative changes are seen. No evidence of aortic calcification is seen. IMPRESSION: 1. No acute pulmonary infiltrate is seen.
[2025-03-18 16:25] LABS: INFLUENZA TYPE A Negative For Type A (NEGATIVE); INFLUENZA TYPE B Negative For Type B (NEGATIVE)
[2025-03-18 16:28] LABS: COVID19 (SARS ANTIGEN RAPID) POSITIVE FOR SARS AG (NEGATIVE)
[2025-03-18] MEDS ORDERED: BENZ-39 PO (16:40)
[2025-03-18] MEDS ORDERED: NIRM1TAB11 PO (16:40)
[2025-03-18 16:47] VITALS: BP 118/79; PULSE 88; RESP 18; O2SAT 98
== END 2025-03-18 16:50 | disposition home or self-care (01) ==
LOC: EDH 15:28
DX: U07.1 COVID-19 (principal); J44.9 Chronic obstructive pulmonary disease, unspecified; F31.9 Bipolar disorder, unspecified; E11.9 Type 2 diabetes mellitus without complications; E78.00 Pure hypercholesterolemia, unspecified; Z79.899 Other long term (current) drug therapy; Z88.0 Allergy status to penicillin; Z88.1 Allergy status to other antibiotic agents; Z88.2 Allergy status to sulfonamides; Z88.5 Allergy status to narcotic agent; Z88.6 Allergy status to analgesic agent; Z90.49 Acquired absence of other specified parts of digestive tract; Z90.710 Acquired absence of both cervix and uterus
CPT/HCPCS: 99284; 71045; 87426; 87880; 87804 ×2; 81003; 96372; J1100

== ENCOUNTER 2025-08-07 14:14 | Emergency (ER) | payer MEDICAID ==
[~2025-08-07] VITALS: Ht 160 cm; Wt 88.9 kg
[~2025-08-07 14:14] MED LIST changes: +IBUP-1492 PO; -IBUP-2070 PO; +NIRM1TAB11 PO
--- NOTE | 2025-08-07 14:35 | ERN ---
General Chief Complaint: Multiple Complaints Stated Complaint: MULTI COMPLAINTS Time Seen by MD: 14:18 History of Present Illness Initial Comments 64-year-old female with a extensive past medical history including bipolar disorder, asthma, COPD, here for evaluation of generalized body weakness and myalgias. Patient states that three days ago she developed diarrhea. Two days ago she developed diffuse myalgias. She comes today because she saw her PCP who prescribed gabapentin with no relief of symptoms. Allergies: Coded Allergies: nitrofurantoin (Unverified Allergy, Mild, RASH, 10/20/24) Penicillins (Verified Allergy, Unknown, 03/26/15) Sulfa (Sulfonamide Antibiotics) (Verified Allergy, Unknown, 03/26/15) alendronate sodium (Unverified Allergy, Unknown, 08/19/18) cephalexin (Unverified Allergy, Unknown, 08/19/18) codeine (Unverified Allergy, Unknown, 08/19/18) iron (Verified Allergy, Unknown, 03/26/15) lorazepam (Verified Allergy, Unknown, 03/26/15) morphine (Verified Allergy, Unknown, 03/26/15) naproxen (Verified Allergy, Unknown, 03/26/15) pregabalin (Verified Allergy, Unknown, 03/26/15) sulfamethoxazole (Unverified Allergy, Unknown, 08/19/18) trimethoprim (Unverified Allergy, Unknown, 08/19/18) Home Meds Active Scripts Benzonatate (Tessalon Perles) 100 Mg Cap, 200 MG PO TID for cough, #60 CAP 0 Refills Prov:KEN KEARNEY 03/18/25 Nirmatrelvir/Ritonavir (Paxlovid 300/150-100Mg(Severe)) 150 Mg (6)-100 Mg (5) Tab.ds.pk, 1 EACH PO AD for 5 Days, #30 TAB TAKE TWO NIRMATRELVIR 150 MG TABS WITH 1 RITONAVIR 100 MG TWICE A DAY FOR FIVE DAYS Prov:KEN KEARNEYP 03/18/25 Ciprofloxacin HCl (Cipro) 500 Mg Tablet, 1 TAB PO BID for 7 Days, #14 TAB 0 Refills Prov:FERNANDO RAJPUT 10/20/24 Levofloxacin (Levaquin 750Mg Tabs) 750 Mg Tablet, 250 MG PO DAILY for 10 Days, #10 TAB 0 Refills Prov:DARBY LINTON [employer] ENGINEER 05/02/24 Benzonatate (Tessalon Perles) 100 Mg Cap, 100 MG PO Q 8 hours p.r.n. for Cough, #15 CAP 0 Refills Prov:DARBY LINTON [employer] ENGINEER 05/02/24 l Acidophil/B Lactis/B Longum (Florajen Digest 15 B Cell Cap) 15 Billion Cell Capsule, 1 EACH PO DAILY for 90 Days, #90 CAP 1 Refill Prov:MARIESOMMER 12/27/23 Reported Medications [Calcium] No Conflict Check, 600 MG PO BID 08/19/18 [Miacalcium] No Conflict Check, 1 SPRAY NASAL DAILY -ALTERNATE NOSTRIL 08/19/18 Ibuprofen (Ibuprofen) 600 Mg Tablet, 600 MG PO Q8HPRN PRN for PAIN, TAB 08/19/18 [Stiolto] No Conflict Check, 25 MG PUFF DAILY 1 PUFF 08/19/18 Albuterol Sulfate (Albuterol Sulfate) 0.63 Mg/3 Ml Vial.neb, 0.63 MG IH Q6HPRN, INH 08/19/18 Fluticasone Propionate (Flonase Nasal [place]) 50 Mcg/[place], 1 SPRAY NASAL BID, SPRAY 08/19/18 Ezetimibe (Zetia) 10 Mg Tablet, 10 MG PO HS, TAB 08/19/18 Hydroxyzine HCl (Hydroxyzine HCl) 25 Mg Tablet, 25 MG PO TID, TAB 08/19/18 Oxybutynin Chloride (Oxybutynin Chloride) 5 Mg Tablet, 5 MG PO TID, TAB 08/19/18 Esomeprazole Magnesium (Nexium) 40 Mg Capsule.dr, 40 MG PO DAILY, CAP 09/20/17 Nitroglycerin (Nitrostat) 0.4 Mg Tab.subl, 0.4 MG SL AD, TAB.SL 09/20/17 Cyanocobalamin (Vitamin B-12) (B-12) 500 Mcg Tablet, 2000 MCG PO DAILY, TAB 09/20/17 Past Medical History Past Medical History: Bipolar, COPD, GERD Medical History Other: ACID REFLUX Past Surgical History: Appendectomy, Hysterectomy Surgical History Other: RT SHOULDER SX, LOWER BACK SX, RT KNEE SX Social History Social History: Lives with family, Other Female( History) History: Not Applicable Musculoskeletal: (+) muscle pain, (+) muscle stiffness Physical Exam Physical Exam Dictation GENERAL APPEARANCE NAD, activity normal for age, well developed/ well nourished, no cyanosis, pallor, or diaphoresis. EYES lids/conjunctiva normal. EARS/NOSE/THROAT Mucous membranes moist, nares normal, lips/teeth normal uvula midline without oral pharyngeal erythema, exudate or swelling TMs normal bilaterally. No lymphangitis/lymphedema. HEAD/NECK normocephalic atraumatic, no facial trauma, neck is supple. RESPIRATORY respiratory effort normal, speaks in full sentences, no tripod position, no accessory muscle use. Lungs clear to auscultation without rhonchi, wheezes, rales CARDIAC Regular rate and rhythm, no edema. ABDOMINAL Soft, ND/NT. No evidence of fluid wave. No pulsatile masses on exam, rebound tenderness, Smith sign or pain over Mcburney's point. MUSCLES/EXTREMITIES No abnormal range of motion, no swelling. SKIN Warm, pink and dry. No rashes, dermatoses, petechiae or lesions. NEUROLOGICAL Speech is clear and appropriate. Normal level of consciousness. Gait and coordination are normal. 5/5 strength in all extremities. PSYCH Normal mood and affect. Judgement/competence is appropriate Results Laboratory and Microbiology Lab and Micro Result Laboratory Tests Test 08/07/25 14:40 08/07/25 14:54 White Blood Count 6.8 K/uL (4.8-10.8) Red Blood Count 4.05 MIL/uL (4.00-5.50) Hemoglobin 12.4 g/dL (12.0-16.0) Hematocrit 37.2 % (36-48) Mean Corpuscular Volume 91.9 fL (79-99) Mean Corpuscular Hemoglobin 30.6 pg (27.0-33.0) Mean Corpuscular Hemoglobin Concent 33.3 g/dL (32.0-36.0) Red Cell Distribution Width 12.7 % (11.0-15.5) Platelet Count 260 K/uL (130-400) Mean Platelet Volume 9.9 fL (7.5-10.5) Immature Granulocyte % (Auto) 0.3 % (0-1) Neutrophils (%) (Auto) 51.0 % (40.0-77.0) Lymphocytes (%) (Auto) 37.9 % (21.0-51.0) Monocytes (%) (Auto) 7.1 % (3.0-13.0) Eosinophils (%) (Auto) 3.1 % (0.0-8.0) Basophils (%) (Auto) 0.6 % (0.0-5.0) Neutrophils # (Auto) 3.4 K/uL (1.8-7.7) Lymphocytes # (Auto) 2.6 K/uL (1.0-4.8) Monocytes # (Auto) 0.5 K/uL (0.1-1.0) Eosinophils # (Auto) 0.21 K/uL (0.00-0.70) Basophils # (Auto) 0.04 K/uL (0.00-0.20) Absolute Immature Granulocyte (auto 0.02 K/uL (0-1) Nucleated Red Blood Cells 0.0 % (0.0-0.19) Sodium Level 140 mmol/L (136-145) Potassium Level 4.0 mmol/L (3.5-5.1) Chloride Level 103 mmol/L (101-111) Carbon Dioxide Level 30 mmol/L (21-32) Blood Urea Nitrogen 11 mg/dL (7-18) Creatinine 0.6 mg/dL (0.5-1.0) Glomerular Filtration Rate Calc 101 mL/min (>90) Random Glucose 94 mg/dL (70-105) Lactic Acid Level 2.4 mmol/L (0.8-2.5) Total Calcium 9.0 mg/dL (8.5-10.1) Total Bilirubin 0.3 mg/dL (0.2-1.0) Direct Bilirubin 0.1 mg/dL (0.0-0.3) Aspartate Amino Transf (AST/SGOT) 19 U/L (10-37) Alanine Aminotransferase (ALT/SGPT) 25 U/L (12-78) Alkaline Phosphatase 112 U/L (50-136) Total Protein 7.6 g/dL (6.0-8.3) Albumin 3.9 g/dL (3.5-5.0) Urine Color COLORLESS (YELLOW) Urine Appearance CLEAR (CLEAR) Urine pH 6.0 (5.0-8.0) Urine Specific [place] 1.005 (1.001-1.031) Urine Protein NEGATIVE mg/dL (NEGATIVE) Urine Glucose (UA) NEGATIVE mg/dL (NEGATIVE) Urine Ketones NEGATIVE mg/dL (NEGATIVE) Urine Occult Blood NEGATIVE (NEGATIVE) Urine Nitrate NEGATIVE (NEGATIVE) Urine Bilirubin NEGATIVE mg/dL (NEGATIVE) Urine Urobilinogen 0.2 mg/dL (0.2-1.0) Urine Leukocyte Esterase NEGATIVE [place]/uL Influenza Type A Antigen Negative For Type A Influenza Type B Antigen Negative For Type B SARS-CoV-2 Antigen (Rapid) PRESUMPTIVE NEGATIVE MDM 64-year-old female here for generalized body weakness/myalgias. We will get bas ic labs and reassess. Disposition pending results of labs and clinical improvement Labs reassuring. Patient improved with muscle relaxant. We will discharge home with PCP follow up. Advised to follow up with PCP for possible referral to pain management in our rheumatology. She improved with central skeletal muscle relaxant. I believe this is because she is anxious and tense in her muscles. We will discharge her home with similar medications. (Patient's prior external medical records from other ER visits were reviewed by me as indicated. Prior testing and results from previous visits were reviewed. Prior tests were taken into account with medical decision making and resource utilization, independent historian/historians were used to obtain complete medical history. I independently interpreted the test that were performed, results were reviewed by me and considered findings on radiology if ordered. Medical management and examination interpretation discussions were had by me with other qualified healthcare professionals as indicated for the patient's care. Labs and imaging reviewed with patient. All questions answered at this time. Patient advised to follow up with primary care physician in the next few days. Patient well-appearing, no acute distress. Vital signs stable. Will discharge at this time. ED Course Orders Procedure Category Date Status Time Basic Metabolic Panel LAB 08/07/25 Complete 14:27 Cbc With Differential LAB 08/07/25 Complete 14:27 Covid19 (Sars Antigen LAB 08/07/25 Complete Rapid) 14:27 Influenza Type A & B, LAB 08/07/25 Complete Rapid 14:27 Hepatic Function Panel LAB 08/07/25 Complete 14:27 Lactic Acid LAB 08/07/25 Complete 14:27 Urinalysis Profile LAB 08/07/25 Complete 14:27 0.9%Nacl 1000ml (Ns PHA 08/07/25 Complete 1000ml) 15:30 Cyclobenzaprine Hcl PHA 08/07/25 Complete (Cyclobenzaprine Hcl 16:00 Current Medications Medications (Trade) Dose Ordered Sig/Vania Route PRN Reason Start Time Stop Time Status Last Admin Dose Admin Cyclobenzaprine HCl (Cyclobenzaprine HCl) 10 mg ONCE ONCE PO 08/07/25 16:00 08/07/25 16:01 DC 08/07/25 15:57 Sodium Chloride 1,000 ml @ 0 mls/hr Q0M ONCE IV 08/07/25 15:30 08/07/25 15:31 DC 08/07/25 15:32 Vital Signs Date Time Temp Pulse Resp B/P (MAP) Pulse Ox O2 Delivery O2 Flow Rate FiO2 08/07/25 14:28 98.2 104 20 105/77 96 Room Air* 0 21 08/07/25 14:15 97.9 85 16 122/78 97 Room Air 0 DX & DISP Disposition: Discharge Departure Impression: Primary Impression: Muscle spasm Additional Impression: Anxiety Condition: Stable Scripts Methocarbamol (Methocarbamol) 500 Mg Tablet 1 TAB PO TID for 30 Days, #90 TAB 0 Refills Prov: ANA BARRETT MD 08/07/25 Referrals: RONALDO DURAN MD (PCP) ANA BARRETT MD Aug 07, 2025 14:35
[2025-08-07 14:58] LABS: IMMATURE GRANULOCYTE ABSOLUTE 0.02 K/uL (0-1); NUCLEATED RED BLOOD CELLS 0.0 % (0.0-0.19); PLATELET COUNT (AUTO) 260 K/uL (130-400); RED BLOOD CELL COUNT(AUTO) 4.05 MIL/uL (4.00-5.50); RED CELL DISTRIBUTION WIDTH 12.7 % (11.0-15.5); WHITE BLOOD COUNT (AUTO) 6.8 K/uL (4.8-10.8)
[2025-08-07 15:04] LABS: CREATININE 0.6 mg/dL (0.5-1.0); GLOMERULAR FILTR. RATE CALC 101.0 mL/min (>90); GLUCOSE,RANDOM 94.0 mg/dL (70-105); SODIUM SERUM 140.0 mmol/L (136-145); UREA NITROGEN, BLOOD 11.0 mg/dL (7-18)
[2025-08-07 15:05] LABS: APPEARANCE,URINE CLEAR (CLEAR); GLUCOSE, URINE (UA) NEGATIVE (NEGATIVE); LEUKOCYTE ESTERASE ,URINE NEGATIVE Leu/uL (NEGATIVE); NITRATE,URINE NEGATIVE (NEGATIVE); OCCULT BLOOD,URINE NEGATIVE (NEGATIVE)
[2025-08-07 15:09] LABS: ASPARTATE AMINOTRANSFERASE 19.0 U/L (10-37); TOTAL PROTEIN, SERUM 7.6 g/dL (6.0-8.3)
[2025-08-07 15:13] LABS: ADD UA MICROSCOPIC NO
[2025-08-07 15:26] LABS: COVID19 (SARS ANTIGEN RAPID) PRESUMPTIVE NEGATIVE (NEGATIVE)
[2025-08-07 15:28] LABS: INFLUENZA TYPE A Negative For Type A (NEGATIVE); INFLUENZA TYPE B Negative For Type B (NEGATIVE)
[2025-08-07] MEDS: 0.9%NACL 1000ML 1,000 ML IV ONE (15:32)
[2025-08-07] MEDS: CYCLOBENZAPRINE HCL 10 MG TABLET PO ONE (15:57)
[2025-08-07] MEDS ORDERED: METH-811 PO (16:23)
[2025-08-07 17:19] VITALS: BP 110/76; PULSE 89; RESP 20; TEMP 98.2; O2SAT 95
== END 2025-08-07 17:26 | disposition home or self-care (01) ==
LOC: EDH 14:14
DX: M62.838 Other muscle spasm (principal); F41.9 Anxiety disorder, unspecified; R53.1 Weakness; R19.7 Diarrhea, unspecified; F31.9 Bipolar disorder, unspecified; J44.89 Other specified chronic obstructive pulmonary disease; K21.9 Gastro-esophageal reflux disease without esophagitis; Z88.0 Allergy status to penicillin; Z88.1 Allergy status to other antibiotic agents; Z88.2 Allergy status to sulfonamides; Z88.5 Allergy status to narcotic agent; Z88.6 Allergy status to analgesic agent; Z90.49 Acquired absence of other specified parts of digestive tract; Z90.710 Acquired absence of both cervix and uterus; Z98.890 Other specified postprocedural states; Z20.822 Contact with and (suspected) exposure to COVID-19
CPT/HCPCS: 99283; 96360; 87426; 80076; 80048; 85025; 87804 ×2; 83605; 81003; 36415; J7030